=== PATIENT | male | born 1965 | race Hispanic/Latino ===

== ENCOUNTER 2016-07-11 12:30 | Inpatient (IN) | payer OTHER ==
[2016-07-11 13:20] LABS: Basophils % (Auto) 0.5 % (0.0-1.8); Eosinophils % (Auto) 5.5 % (0.0-4.3); Hemoglobin 13.1 gm/dl (11.8-15.2); Mean Corpuscular HGB Conc 36 % (32-34); Mean Corpuscular Hemoglobin 31 pg (28-32); Mean Corpuscular Volume 86 fl (84-94); Platelet Count 430 K/mm3 (140-440); White Blood Count 18.4 K/mm3 (4.5-11.0)
[2016-07-11 13:28] LABS: Anion Gap 16 mmol/L; BUN/Creatinine Ratio 15.55; Blood Urea Nitrogen 14 mg/dL (9-20); Calcium 8.4 mg/dL (8.4-10.2); Carbon Dioxide 23 mmol/L (22-30); Chloride 100.8 mmol/L (98-107); Glucose 85 mg/dL (75-100); Potassium 4.2 mmol/L (3.6-5.0); Sodium 136 mmol/L (137-145)
--- NOTE | 2016-07-11 13:37 | XRay Report ---
Chest 2 views: Compared to 03/08/16. Findings: Normal cardiomediastinal silhouette. Trachea and is midline. Evidence of COPD with fibrosis and scarring lower lobes. Left diaphragmatic higher compared to right. Infiltrates in the right lower lobe suggestive of pneumonitis. Impression: COPD. Superimposed pneumonitis right lung.
--- NOTE | 2016-07-11 15:40 | Emergency Department Report ---
HPI - General Chief Complaint: Dyspnea/Respdistress Time Seen by Provider: 07/11/16 15:34 - HPI HPI: Chief complaint: Shortness of breath and cough HPI: Patient with a history of COPD and coronary artery disease status post NJ with a stent presents with increasing shortness of breath over the last 3 weeks. Patient states he had an NJ in February 2016 and that's when he quit smoking. Patient is a and went to the [facility] [place] but has not been able to transfer his records to the [facility] here. Mode of arrival: [private car] Source: [Patient] Began: 3 weeks ago Duration: 3 weeks Context: See above Quality: Pain-free Severity: 0 out of 10 Improved with: Nothing Worsened with: Exertion Associated signs and symptoms: No fever and no productive sputum ED Past Medical Hx - Past Medical History Previous Medical History?: Yes Hx Heart Attack/AMI: Yes (2015 stent) Hx GERD: Yes Hx COPD: Yes Additional medical history: AFIB - Surgical History Past Surgical History?: Yes Hx Coronary Stent: Yes Hx Appendectomy: No Hx Breast Surgery: No Additional Surgical History: Cyst removed from lt.arm. - Social History Smoking Status: Former Smoker Substance Use Type: Prescribed - Medications Home Medications: Home Medications Medication Instructions Recorded Confirmed Last Taken Type Aspirin [Aspirin TAB] 325 mg PO QDAY #30 tablet 03/10/16 Unknown Rx Clopidogrel [Plavix] 75 mg PO QDAY #30 tablet 03/10/16 Unknown Rx Metoprolol Xl [Metoprolol 25 mg PO QDAY #30 tablet 03/10/16 Unknown Rx SUCCINATE ER TAB] Simvastatin [Zocor TAB] 40 mg PO QHS #30 tablet 03/10/16 Unknown Rx ED Review of Systems ROS: Stated complaint: SOB Other details as noted in HPI ROS Constitutional: No fever ENT: No uri symptoms Cardiovascular: No chest pain Respiratory: See HPI GI: No nausea vomiting or diarrhea : No dysuria frequency or urgency, Skin: No rash Neuro: No focal weakness or numbness Psych: No depression Vadim/lymph: No edema Physical Exam - Physical Exam Vital Signs: Vital Signs 07/11/16 07/11/16 12:43 14:51 Temperature 97.7 F Pulse Rate 81 86 Respiratory 18 21 Rate Blood Pressure 95/59 Blood Pressure 111/60 [Left] O2 Sat by Pulse 93 91 Oximetry Physical Exam: GENERAL: The patient is a thin male with mild shortness of breath HEENT: Normocephalic. Atraumatic. Extraocular motions are intact. Patient has moist mucous membranes. NECK: Supple. No meningitic signs are noted. There is no adenopathy noted. CHEST/LUNGS: Clear to auscultation. There is no respiratory distress noted. HEART/CARDIOVASCULAR: Regular. There is no tachycardia. There is no gallop rub or murmur. ABDOMEN: Abdomen is soft, nontender. Patient has normal bowel sounds. There is no abdominal distention. SKIN: There is no rash. There is no edema. There is no diaphoresis. NEURO: The patient is awake, alert, and oriented. The patient is cooperative. The patient has no focal neurologic deficits. The patient has normal speech. MUSCULOSKELETAL: There is no tenderness or deformity. There is no limitation range of motion. There is no evidence of acute injury. ED Course Vital Signs 07/11/16 07/11/16 12:43 14:51 Temperature 97.7 F Pulse Rate 81 86 Respiratory 18 21 Rate Blood Pressure 95/59 Blood Pressure 111/60 [Left] O2 Sat by Pulse 93 91 Oximetry - Reevaluation(s) Reevaluation #1: 07/11/16 Patient placed on a liter and a half nasal cannula, cultured and given IV antibiotics and will be admitted by the hospitalist. ED Medical Decision Making - Lab Data Result diagrams: 07/11/16 12:57 07/11/16 12:57 Laboratory Tests 07/11/16 12:57 Calcium 8.4 Troponin T < 0.010 - EKG Data -: EKG Interpreted by Me EKG shows normal: sinus rhythm Rate: normal (73) - EKG Data When compared to previous EKG there are: no significant change - Radiology Data interpreted by me: Chest x-ray with a left lower lobe infiltrate and pleural effusion. Questionable right lower lobe infiltrate. Critical care attestation.: If time is entered above; I have spent that time in minutes in the direct care of this critically ill patient, excluding procedure time. ED Disposition Clinical Impression: Pleural effusion Pneumonia Qualifiers: Pneumonia type: due to unspecified organism Laterality: bilateral Lung location : unspecified part of lung Qualified Code(s): J18.9 - Pneumonia, unspecified organism Disposition: OP ADMITTED IP TO THIS HOSP Is pt being admited?: Yes Does the pt Need Aspirin: Yes Condition: Fair Time of Disposition: 15:49 (admit to the hospitalist)
[2016-07-11] MEDS ORDERED: ASPIRIN PO ONE (16:12)
--- NOTE | 2016-07-11 18:02 | History and Physical Report ---
History of Present Illness Date of examination: 07/11/16 History of present illness: 51-year-old male with a history of FL presents to the hospital complaining of coughing and shortness of breath. Patient state that these symptoms are gone on for about 3 days. Patient described the coughing as productive with yellow sputum and fever, chills. Patient admits to some shortness of breath with exertion. Patient denies any wheezing. Patient denies any sick contacts. Patient denies any night sweats or weight loss. Past History Past Medical History: acute [place], hypertension, hyperlipidemia Medications and Allergies Allergies Allergy/AdvReac Type Severity Reaction Status Date / Time No Known Allergies Allergy Verified 03/08/16 03:00 Home Medications Medication Instructions Recorded Confirmed Last Taken Type Aspirin [Aspirin TAB] 325 mg PO QDAY #30 tablet 03/10/16 Unknown Rx Clopidogrel [Plavix] 75 mg PO QDAY #30 tablet 03/10/16 Unknown Rx Metoprolol Xl [Metoprolol 25 mg PO QDAY #30 tablet 03/10/16 Unknown Rx SUCCINATE ER TAB] Simvastatin [Zocor TAB] 40 mg PO QHS #30 tablet 03/10/16 Unknown Rx Review of Systems Constitutional: weakness, malaise Respiratory: cough with sputum, shortness of breath, dyspnea on exertion Exam - Constitutional Vitals: Temp Pulse Resp BP Pulse Ox 97.7 F 83 19 111/60 94 07/11/16 12:43 07/11/16 15:47 07/11/16 15:47 07/11/16 14:51 07/11/16 15:47 General appearance: Present: mild distress - EENT Eyes: Present: PERRL, EOM intact ENT: hearing intact, clear oral mucosa - Neck Neck: Present: supple, normal ROM - Respiratory Respiratory: bilateral: rhonchi - Cardiovascular Rhythm: regular Heart Sounds: Present: S1 & S2 - Extremities Extremities: no ischemia, No edema - Abdominal General gastrointestinal: Present: soft, non-tender, non-distended, normal bowel sounds - Musculoskeletal Musculoskeletal: strength equal bilaterally - Psychiatric Psychiatric: appropriate mood/affect, intact judgment & insight - Neurologic Neurologic: CNII-XII intact, moves all extremities Results - Labs CBC & Chem 7: 07/11/16 12:57 07/11/16 12:57 Labs: Laboratory Last Values WBC 18.4 K/mm3 (4.5-11.0) H 07/11/16 12:57 RBC 4.30 M/mm3 (3.65-5.03) 07/11/16 12:57 Hgb 13.1 gm/dl (11.8-15.2) 07/11/16 12:57 Hct 37.0 % (35.5-45.6) 07/11/16 12:57 MCV 86 fl (84-94) 07/11/16 12:57 MCH 31 pg (28-32) 07/11/16 12:57 MCHC 36 % (32-34) H 07/11/16 12:57 RDW 17.0 % (13.2-15.2) H 07/11/16 12:57 Plt Count 430 K/mm3 (140-440) 07/11/16 12:57 Lymph % (Auto) 16.4 % (13.4-35.0) 07/11/16 12:57 [place] % (Auto) 6.6 % (0.0-7.3) 07/11/16 12:57 Eos % (Auto) 5.5 % (0.0-4.3) H 07/11/16 12:57 Baso % (Auto) 0.5 % (0.0-1.8) 07/11/16 12:57 Lymph # 3.0 K/mm3 (1.2-5.4) 07/11/16 12:57 [place] # 1.2 K/mm3 (0.0-0.8) H 07/11/16 12:57 Eos # 1.0 K/mm3 (0.0-0.4) H 07/11/16 12:57 Baso # 0.1 K/mm3 (0.0-0.1) 07/11/16 12:57 Seg Neutrophils % 71.0 % (40.0-70.0) H 07/11/16 12:57 Seg Neutrophils # 13.1 K/mm3 (1.8-7.7) H 07/11/16 12:57 Sodium 136 mmol/L (137-145) L 07/11/16 12:57 Potassium 4.2 mmol/L (3.6-5.0) 07/11/16 12:57 Chloride 100.8 mmol/L (98-107) 07/11/16 12:57 Carbon Dioxide 23 mmol/L (22-30) 07/11/16 12:57 Anion Gap 16 mmol/L 07/11/16 12:57 BUN 14 mg/dL (9-20) 07/11/16 12:57 Creatinine 0.9 mg/dL (0.8-1.5) 07/11/16 12:57 Estimated GFR > 60 ml/min 07/11/16 12:57 BUN/Creatinine Ratio 15.55 % 07/11/16 12:57 Glucose 85 mg/dL (75-100) 07/11/16 12:57 Calcium 8.4 mg/dL (8.4-10.2) 07/11/16 12:57 Troponin T < 0.010 ng/mL (0.00-0.029) 07/11/16 12:57 Assessment and Plan - Patient Problems (1) Pleural effusion Current Visit: Yes Status: Acute Plan to address problem: Pulmonary medicine was consulted for possible thoracentesis to evaluate etiology of pleural fluid (2) Pneumonia Current Visit: Yes Status: Acute Qualifiers: Pneumonia type: due to unspecified organism Aspiration pneumonia type: A Laterality: bilateral Lung location: unspecified part of lung Qualified Code (s): J18.9 - Pneumonia, unspecified organism Plan to address problem: We'll start IV Levaquin. Follow sputum cultures. Follow blood cultures
[2016-07-11] MEDS ORDERED: LEVAQUIN 750MG/150ML 0 MG/0 ML BAG IV ONE (18:37)
[2016-07-11] MEDS ORDERED: NACL 0.9% 1000 ML 0 ML ONE (18:37)
[2016-07-11] MEDS: TOPROL XL PO SCH (18:50)
[2016-07-11] MEDS: PLAVIX PO SCH (20:25)
[2016-07-11] MEDS: ASPIRIN PO SCH (20:25)
[2016-07-11] MEDS: LEVAQUIN 500MG/100ML 500 MG/100 ML BAG IV SCH (20:25)
[2016-07-11] MEDS: NACL 0.9% 1000 ML 1,000 ML IV SCH (20:26)
[2016-07-11] MEDS: ZOCOR PO SCH (21:58)
[2016-07-11] MEDS ORDERED: PROVENTIL IH PRN (22:07)
[2016-07-12] MEDS: NACL 0.9% 1000 ML 1,000 ML IV SCH ×3 (04:51→22:03)
[2016-07-12 07:47] LABS: Basophils % (Auto) 0.7 % (0.0-1.8); Eosinophils % (Auto) 9.8 % (0.0-4.3); Hematocrit 34.4 % (35.5-45.6); Hemoglobin 12.3 gm/dl (11.8-15.2); Mean Corpuscular HGB Conc 36 % (32-34); Mean Corpuscular Hemoglobin 31 pg (28-32); Mean Corpuscular Volume 86 fl (84-94); Platelet Count 369 K/mm3 (140-440); Red Cell Distribution Width 17.1 % (13.2-15.2); White Blood Count 13.1 K/mm3 (4.5-11.0)
[2016-07-12 08:39] LABS: Alanine Aminotransferase 6 units/L (7-56); Albumin 3.4 g/dL (3.9-5); Albumin/Globulin Ratio 1.1 %; Alkaline Phosphatase 57 units/L (35-129); Anion Gap 17 mmol/L; BUN/Creatinine Ratio 15.71; Bilirubin,Total 1.2 mg/dL (0.1-1.2); Blood Urea Nitrogen 11 mg/dL (9-20); Calcium 8.1 mg/dL (8.4-10.2); Carbon Dioxide 23 mmol/L (22-30); Glucose 86 mg/dL (75-100); Potassium 4.1 mmol/L (3.6-5.0); Sodium 139 mmol/L (137-145); Total Protein 6.5 g/dL (6.3-8.2)
[2016-07-12] MEDS: TOPROL XL PO SCH (09:14)
[2016-07-12] MEDS: ASPIRIN PO SCH (09:16)
[2016-07-12] MEDS: PLAVIX PO SCH (09:16)
--- NOTE | 2016-07-12 10:05 | Event Note ---
Date: 07/12/16 Dr. Pope thank you for asking us to participate in the care of this patient. Full consultation dictated.Pulmonary consultation dictation number: [id number]. IMMPRESSION: 1. COPD EXCERBATION. 2. RIGHT SIDED PNEUMONIA. 3. LEFT PLEURAL EFFUSION OR PLEURAL SCARRING. 4. CAD, S/P CORONARY STENT PLACEMENT. 5. H/O [place]. PLAN: 1. O2 2 LITRES VIA NASAL CANULA. 2. ABGS ON ROOM AIR. 3. ALBUTEROL/ATROVENT AEROSOL TREATMENTS Q 6 HOURS. 4. ULTRASOUND OF CHEST. 5. CONTINUE I/V LEVAQUINE. 6. BROVANNA/ATROVENT AEROSOL TREATMENTS Q 12 HOURS.
--- NOTE | 2016-07-12 19:00 | Progress Note ---
Assessment and Plan Assessment and plan: --Right-sided pneumonia Continue IV antibiotics, follow cultures, cough medicine as needed Oxygen titrated to O2 sats more than 90% --Acute exacerbation of COPD We will manage with nebulizers, IV antibiotics, inhalation steroids --Left-sided pleural effusion We'll obtain a chest ultrasound, paracentesis if needed --History of coronary artery disease status post PCI Continue current cardiac medications, aspirin and Plavix beta blockers and statins --DVT prophylaxis with Lovenox Consults and recommendations noted and appreciated Patient's condition treatment plan discussed in detail with the patient and his nurse History Interval history: Sincerely and evaluated in his room this morning medical records reviewed Admitted with pneumonia and post shortness of breath as well as left-sided pleural effusion Patient feels slightly better still complains of shortness of breath Alert awake oriented 3 not in acute distress Vital signs reviewed Hospitalist Physical - Constitutional Vitals: Temp Pulse Resp BP Pulse Ox 98.1 F 74 20 97/56 98 07/12/16 14:30 07/12/16 14:30 07/12/16 14:30 07/12/16 14:30 07/12/16 08:07 General appearance: Present: mild distress, cachectic - EENT Eyes: Present: PERRL, EOM intact - Neck Neck: Present: supple, normal ROM - Respiratory Respiratory effort: normal Respiratory: bilateral: diminished (left more than right), rhonchi, negative: wheezing - Cardiovascular Rhythm: regular Heart Sounds: Present: S1 & S2 - Extremities Extremities: no ischemia, pulses intact Peripheral Pulses: within normal limits - Abdominal General gastrointestinal: soft, non-tender, non-distended, normal bowel sounds - Integumentary Integumentary: Present: clear, warm - Psychiatric Psychiatric: appropriate mood/affect, cooperative - Neurologic Neurologic: CNII-XII intact, moves all extremities Results - Labs CBC & Chem 7: 07/12/16 06:20 07/12/16 06:20 Labs: Laboratory Last Values WBC 13.1 K/mm3 (4.5-11.0) H 07/12/16 06:20 RBC 4.00 M/mm3 (3.65-5.03) 07/12/16 06:20 Hgb 12.3 gm/dl (11.8-15.2) 07/12/16 06:20 Hct 34.4 % (35.5-45.6) L 07/12/16 06:20 MCV 86 fl (84-94) 07/12/16 06:20 MCH 31 pg (28-32) 07/12/16 06:20 MCHC 36 % (32-34) H 07/12/16 06:20 RDW 17.1 % (13.2-15.2) H 07/12/16 06:20 Plt Count 369 K/mm3 (140-440) 07/12/16 06:20 Lymph % (Auto) 11.8 % (13.4-35.0) L 07/12/16 06:20 [place] % (Auto) 6.7 % (0.0-7.3) 07/12/16 06:20 Eos % (Auto) 9.8 % (0.0-4.3) H 07/12/16 06:20 Baso % (Auto) 0.7 % (0.0-1.8) 07/12/16 06:20 Lymph # 1.5 K/mm3 (1.2-5.4) 07/12/16 06:20 [place] # 0.9 K/mm3 (0.0-0.8) H 07/12/16 06:20 Eos # 1.3 K/mm3 (0.0-0.4) H 07/12/16 06:20 Baso # 0.1 K/mm3 (0.0-0.1) 07/12/16 06:20 Seg Neutrophils % 71.0 % (40.0-70.0) H 07/12/16 06:20 Seg Neutrophils # 9.3 K/mm3 (1.8-7.7) H 07/12/16 06:20 Sodium 139 mmol/L (137-145) 07/12/16 06:20 Potassium 4.1 mmol/L (3.6-5.0) 07/12/16 06:20 Chloride 103.0 mmol/L (98-107) 07/12/16 06:20 Carbon Dioxide 23 mmol/L (22-30) 07/12/16 06:20 Anion Gap 17 mmol/L 07/12/16 06:20 BUN 11 mg/dL (9-20) 07/12/16 06:20 Creatinine 0.7 mg/dL (0.8-1.5) L 07/12/16 06:20 Estimated GFR > 60 ml/min 07/12/16 06:20 BUN/Creatinine Ratio 15.71 % 07/12/16 06:20 Glucose 86 mg/dL (75-100) 07/12/16 06:20 Calcium 8.1 mg/dL (8.4-10.2) L 07/12/16 06:20 Total Bilirubin 1.2 mg/dL (0.1-1.2) 07/12/16 06:20 AST 11 units/L (5-40) 07/12/16 06:20 ALT 6 units/L (7-56) L 07/12/16 06:20 Alkaline Phosphatase 57 units/L (35-129) 07/12/16 06:20 Troponin T < 0.010 ng/mL (0.00-0.029) 07/11/16 12:57 Total Protein 6.5 g/dL (6.3-8.2) 07/12/16 06:20 Albumin 3.4 g/dL (3.9-5) L 07/12/16 06:20 Albumin/Globulin Ratio 1.1 % 07/12/16 06:20
[2016-07-12] MEDS: LEVAQUIN 500MG/100ML 500 MG/100 ML BAG IV SCH (19:15)
[2016-07-12] MEDS: BROVANA NEBU IH SCH (20:53)
[2016-07-12] MEDS: ATROVENT IH SCH (21:09)
[2016-07-12] MEDS: ZOCOR PO SCH (22:00)
[2016-07-12] MEDS: LOVENOX SUB-Q SCH (22:00)
[2016-07-13] MEDS: NACL 0.9% 1000 ML 1,000 ML IV SCH (08:28)
[2016-07-13] MEDS: BROVANA NEBU IH SCH ×2 (08:59→20:52)
[2016-07-13] MEDS: ATROVENT IH SCH ×2 (09:00→20:52)
--- NOTE | 2016-07-13 09:06 | Ultrasound Report ---
ULTRASOUND CHEST History: Left pleural effusion Findings: Targeted transabdominal ultrasound on left side of the chest. There is a moderate left pleural fluid collection measuring at 399 cc. This appears to contain moderate debris but no septation or gas. Impression: Moderate, slightly complex appearing left pleural effusion measuring 399 cc.
--- NOTE | 2016-07-13 09:51 | Admit Criteria Form ---
Admission Criteria Documentation: PLEURAL EFFUSION Clinical Indications for Admission to Inpatient Care (Place 'X' for any and all applicable criteria): Admission is indicated for ANY ONE of the following (1)(2)(3): [ ]I. Pneumonia-related effusion requiring drainage as indicated by ANY ONE of the following [A]: [ ]a) Large pleural effusion (symptomatic or greater than one-half of hemithorax) [ ]b) Loculated effusion [ ]c) Pleural thickening [ ]d) Pleural fluid analysis results, including ANY ONE of the following: [ ]i) Positive Gram stain or culture for bacteria [ ]ii) Pus [ ]iii) pH less than 7.20 [X]II. Inpatient admission required rather than observation care (Also use Pleural Effusion: Observation Care criteria as appropriate) because of ANY ONE of the following: [ ]a) Hemodynamic instability that is severe or persistent [ ]b) Respiratory distress that is severe or persistent [ ]c) Complication of drainage (e.g., pneumothorax) that requires inpatient care [ ]d) Etiology that requires inpatient care (e.g., pulmonary embolism , trauma) [ ]e) Severe pain requiring acute inpatient management [X ]f) Supplemental O2 or respiration drug for over 24 hrs that are performable only in an inpatient setting [ ]g) Chest tube placement with active evacuation (e.g., suction, drainage) [ ]h) Pulmonary artery catheter monitoring [ ]i) Epidural analgesia (8) [ ]j) Continuous IV infusion of anticoagulation, platelet inhibitor, vasoactive, or antiarrhythmic medication. [X ]k) Other condition, treatment or monitoring requiring inpatient admission [ ]l) Immediate inpatient surgery [ ]III. Hemothorax [ ]IV. Empyema [ ]V. Pleural effusion with concomitant pneumothorax [ ]. Recurrent or malignant pleural effusion requiring pleurodesis (4) Extended stay beyond goal length of stay may be needed for (27)(28): [ ]a) Empyema or complicated parapneumonic effusion (24)(29) [ ]b) Malignant pleural effusion (4) [ ]c) Pleural effusion due to trauma or perforated esophagus [ ]d) Pleural effusion due to pulmonary embolism (30) [ ]e) Clinically significant re-expansion pulmonary edema [ ]f) Hemothorax [ ]g) Renal failure [ ]h) Trapped lung (e.g., benign or malignant thickened pleura preventing lung re-expansion) (31) [ ]i) Underlying etiology necessitates ongoing inpatient care (e.g., pneumonia, heart failure, malignancy) [ ]j) Complications of thoracentesis, thoracostomy tube, or pleural cath. placement The original [facility] content created by [facility] [employer] has been revised. The portions of the content which have been revised are identified through the use of italic text or in bold, and [facility] has neither reviewed nor approved the modified material. All other unmodified content is copyright [facility] [employer]. Please see references footnoted in the original [facility] edition 2016 Admission Criteria Met: Yes
[2016-07-13 10:14] LABS: ISTAT Base Excess -3; ISTAT HCO3 21.7; ISTAT PCO2 35.9 (35-45); ISTAT PO2 61 (80-105); ISTAT SO2 91; ISTAT TCO2 23
[2016-07-13] MEDS: ASPIRIN PO SCH (10:30)
[2016-07-13] MEDS: PLAVIX PO SCH (10:30)
[2016-07-13] MEDS: TOPROL XL PO SCH (10:30)
--- NOTE | 2016-07-13 14:18 | Progress Note ---
Assessment and Plan Assessment and plan: --Left-sided pleural effusion Ultrasound revealed Moderate slightly complex-appearing left pleural effusion measuring [address]-guided thoracentesis versus CT surgeon consultation if needed Pulmonary following --Right-sided pneumonia Continue IV antibiotics, follow cultures, cough medicine as needed Oxygen titrated to O2 sats more than 90% --Acute exacerbation of COPD We will manage with nebulizers, IV antibiotics, inhalation steroids --History of coronary artery disease status post PCI Continue current cardiac medications, aspirin and Plavix beta blockers and statins --DVT prophylaxis with Lovenox Home oxygen evaluation at this time of discharge Closely monitor the patient adjust management as needed Plan of care discussed with the patient and his nurse History Interval history: Patient seen and evaluated medical records reviewed No new events reported by the nursing staff Ultrasound chest revealed complex left pleural effusion Shortness of breath slightly improved Alert awake oriented 3 not in acute distress vital signs reviewed Hospitalist Physical - Constitutional Vitals: Temp Pulse Resp BP Pulse Ox 97.8 F 88 18 107/63 93 07/13/16 08:29 07/13/16 09:15 07/13/16 09:15 07/13/16 08:29 07/13/16 10:00 General appearance: Present: no acute distress, other (10.) - EENT Eyes: Present: PERRL, EOM intact - Neck Neck: Present: supple, normal ROM - Respiratory Respiratory: right: rhonchi (right-sided rhonchi), bilateral: diminished (left more than right), negative: rales, wheezing - Cardiovascular Rhythm: regular Heart Sounds: Present: S1 & S2 - Extremities Extremities: no ischemia, pulses intact, pulses symmetrical Peripheral Pulses: within normal limits - Abdominal General gastrointestinal: soft, non-tender, non-distended, normal bowel sounds - Integumentary Integumentary: Present: clear, warm - Psychiatric Psychiatric: appropriate mood/affect, cooperative - Neurologic Neurologic: CNII-XII intact, moves all extremities Results - Labs CBC & Chem 7: 07/12/16 06:20 07/12/16 06:20 Labs: Laboratory Last Values WBC 13.1 K/mm3 (4.5-11.0) H 07/12/16 06:20 RBC 4.00 M/mm3 (3.65-5.03) 07/12/16 06:20 Hgb 12.3 gm/dl (11.8-15.2) 07/12/16 06:20 Hct 34.4 % (35.5-45.6) L 07/12/16 06:20 MCV 86 fl (84-94) 07/12/16 06:20 MCH 31 pg (28-32) 07/12/16 06:20 MCHC 36 % (32-34) H 07/12/16 06:20 RDW 17.1 % (13.2-15.2) H 07/12/16 06:20 Plt Count 369 K/mm3 (140-440) 07/12/16 06:20 Lymph % (Auto) 11.8 % (13.4-35.0) L 07/12/16 06:20 [place] % (Auto) 6.7 % (0.0-7.3) 07/12/16 06:20 Eos % (Auto) 9.8 % (0.0-4.3) H 07/12/16 06:20 Baso % (Auto) 0.7 % (0.0-1.8) 07/12/16 06:20 Lymph # 1.5 K/mm3 (1.2-5.4) 07/12/16 06:20 [place] # 0.9 K/mm3 (0.0-0.8) H 07/12/16 06:20 Eos # 1.3 K/mm3 (0.0-0.4) H 07/12/16 06:20 Baso # 0.1 K/mm3 (0.0-0.1) 07/12/16 06:20 Seg Neutrophils % 71.0 % (40.0-70.0) H 07/12/16 06:20 Seg Neutrophils # 9.3 K/mm3 (1.8-7.7) H 07/12/16 06:20 POC ABG pH 7.390 (7.35-7.45) 07/12/16 16:05 POC ABG pCO2 35.9 (35-45) 07/12/16 16:05 POC ABG pO2 61 (80-105) L 07/12/16 16:05 POC ABG HCO3 21.7 07/12/16 16:05 POC ABG Total CO2 23 07/12/16 16:05 POC ABG O2 Sat 91 07/12/16 16:05 POC ABG Base Excess -3 07/12/16 16:05 FiO2 3 % 07/12/16 16:05 Sodium 139 mmol/L (137-145) 07/12/16 06:20 Potassium 4.1 mmol/L (3.6-5.0) 07/12/16 06:20 Chloride 103.0 mmol/L (98-107) 07/12/16 06:20 Carbon Dioxide 23 mmol/L (22-30) 07/12/16 06:20 Anion Gap 17 mmol/L 07/12/16 06:20 BUN 11 mg/dL (9-20) 07/12/16 06:20 Creatinine 0.7 mg/dL (0.8-1.5) L 07/12/16 06:20 Estimated GFR > 60 ml/min 07/12/16 06:20 BUN/Creatinine Ratio 15.71 % 07/12/16 06:20 Glucose 86 mg/dL (75-100) 07/12/16 06:20 Calcium 8.1 mg/dL (8.4-10.2) L 07/12/16 06:20 Total Bilirubin 1.2 mg/dL (0.1-1.2) 07/12/16 06:20 AST 11 units/L (5-40) 07/12/16 06:20 ALT 6 units/L (7-56) L 07/12/16 06:20 Alkaline Phosphatase 57 units/L (35-129) 07/12/16 06:20 Troponin T < 0.010 ng/mL (0.00-0.029) 07/11/16 12:57 Total Protein 6.5 g/dL (6.3-8.2) 07/12/16 06:20 Albumin 3.4 g/dL (3.9-5) L 07/12/16 06:20 Albumin/Globulin Ratio 1.1 % 07/12/16 06:20
[2016-07-13] MEDS: LEVAQUIN PO SCH (15:47)
--- NOTE | 2016-07-13 21:17 | Progress Note ---
Assessment and Plan Patient alert, awake. Sitting by the side of the bed.Says breathing better.O loculated 2 satuaration 98% on 3 litres O2.Patients Ultrsound of chest reported about 400ml of left pleural effusion slightly complex loculated effusion. Recommend thoracentesis under ultrasound or CAT scan guidance by interventional radiology. - Patient Problems (1) COPD exacerbation Current Visit: Yes Status: Acute Plan to address problem: O2 supplementation 3 litres. Brovanna/Atrovent aerosol treatments.q 12 hours. Continue S/C Lovenox. Continue Levaquine. (2) Pleural effusion, left Current Visit: Yes Status: Acute Plan to address problem: Ultrasound of chest reported about 400 ml loculated and slightly complex left pleural effusion. Recommend thoracentesis under ultrasound or CT guidance by interventional radiology. Sent pleural fluid for cytology, cell count, LDH, Protein, Glucose and amylase, gram stain C&S ,AFB and Fungus. (3) Pneumonia Current Visit: Yes Status: Acute Qualifiers: Pneumonia type: due to unspecified organism Aspiration pneumonia type: A Laterality: bilateral Lung location: unspecified part of lung Qualified Code (s): J18.9 - Pneumonia, unspecified organism Plan to address problem: Patient is on Levaquine. (4) STEMI (ST elevation myocardial infarction) Current Visit: No Status: Acute Qualifiers: Involved coronary artery: unspecified coronary artery Qualified Code(s): I21.3 - ST elevation (STEMI) myocardial infarction of unspecified site Plan to address problem: Management as per primary care and cardiology. Subjective Date of service: 07/13/16 Interval history: Patient alert, awake. Sitting by the side of the bed.Says breathing better.O loculated 2 satuaration 98% on 3 litres O2.Patients Ultrsound of chest reported about 400ml of left pleural effusion slightly complex loculated effusion. Recommend thoracentesis under ultrasound or CAT scan guidance by interventional radiology. Objective Vital Signs - 12hr 07/13/16 07/13/16 07/13/16 09:15 10:00 16:23 Temperature 97.9 F Pulse Rate [ 88 Bilateral Throughout] Pulse Rate [ 66 From Monitor] Respiratory 20 Rate Respiratory 18 Rate [Bilateral Throughout] Blood Pressure 99/55 [Left Arm] O2 Sat by Pulse 93 Oximetry 07/13/16 07/13/16 20:54 20:55 Temperature Pulse Rate [ 78 Bilateral Throughout] Pulse Rate [ From Monitor] Respiratory Rate Respiratory 16 Rate [Bilateral Throughout] Blood Pressure [Left Arm] O2 Sat by Pulse 98 Oximetry Constitutional: no acute distress, alert Eyes: non-icteric ENT: oropharynx moist Neck: supple, no lymphadenopathy Ascultation: Bilateral: diminished breath sounds (prolonged expiratory phase. Decreased breath sounds left base.) Cardiovascular: regular rate and rhythm Gastrointestinal: normoactive bowel sounds, soft, non-tender Integumentary: normal Extremities: no cyanosis, no edema Neurologic: normal mental status, non-focal exam, pupils equal and round, CN II- XII normal Psychiatric: mood appropriate CBC and BMP: 07/12/16 06:20 07/12/16 06:20 ABG, PT/INR, D-dimer: ABG POC ABG pH 7.390 (7.35-7.45) 07/12/16 16:05 POC ABG pCO2 35.9 (35-45) 07/12/16 16:05 POC ABG pO2 61 (80-105) L 07/12/16 16:05 POC ABG HCO3 21.7 07/12/16 16:05 POC ABG Total CO2 23 07/12/16 16:05 POC ABG O2 Sat 91 07/12/16 16:05 Abnormal lab findings: Abnormal Labs 07/12/16 07/12/16 07/12/16 06:20 06:20 16:05 WBC 13.1 H Hct 34.4 L MCHC 36 H RDW 17.1 H Lymph % (Auto) 11.8 L Eos % (Auto) 9.8 H [place] # 0.9 H Eos # 1.3 H Seg Neutrophils % 71.0 H Seg Neutrophils # 9.3 H POC ABG pO2 61 L Creatinine 0.7 L Calcium 8.1 L ALT 6 L Albumin 3.4 L Additional Studies: Ultrasound of chest reported about 400 ml slightly complex loculated left effusion.
[2016-07-13 21:39] LABS: INR 1.11 (0.87-1.13)
[2016-07-13] MEDS ORDERED: ATROVENT IH SCH (22:00)
[2016-07-13] MEDS: LOVENOX SUB-Q SCH (22:40)
[2016-07-13] MEDS: ZOCOR PO SCH (22:40)
--- NOTE | 2016-07-14 00:11 | Consultation ---
CONSULTED BY: Dr. Pope. REASON FOR CONSULTATION: Left pleural effusion and right-sided pneumonia. HISTORY OF PRESENT ILLNESS: Dr. Pope, thank you for asking me to participate in the care of this patient. This is a 51-year-old white male with history of myocardial infarction and coronary artery disease, status post stent placement in the right coronary artery, came in with a complaint of cough and shortness of breath. These symptoms started 3 days prior to coming into the Emergency Room. The patient's cough is productive with yellow sputum and he also has been running a little fever and chills and he has some shortness of breath on exertion. He denies any wheezing. Denies any sick contacts. He denies any night sweats or weight loss. The patient has a history of hypertension, hyperlipidemia, history of myocardial infarction. The patient also has a heavy history of smoking 1 pack for 30 years. He said he stopped recently. He may have a COPD also. ALLERGIES: The patient denies any allergies to the medications. 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 He is . He is in the process of divorce. He has 1 child. He denies any history of alcohol or drug abuse. PHYSICAL EXAMINATION: GENERAL: He is kind of weak and resting in a bed, but no acute respiratory distress at this time. VITAL SIGNS: Temperature is 98.2, pulse is 82, respirations 20, blood pressure ____. HEENT: Eyes, sunken. Pupils reactive to the light. NECK: Supple, no lymphadenopathy. CARDIOVASCULAR: Regular rate and rhythm. LUNGS: Decreased breath sounds at the right and left base, prolonged expiratory phases, and few bilateral rhonchi. ABDOMEN: Soft. Bowel sounds present. No CVA tenderness. MUSCULOSKELETAL: No edema, no clubbing, no cyanosis. NEUROLOGIC: DTR equal and reactive. Babinski negative. No focal neurological deficits. LABORATORY DATA: The patient's CBC: WBC 13.1, hemoglobin 12.3, hematocrit is 34.4, platelet count is 369,000. The patient's CMP: Sodium 139, potassium 4.1, BUN 11, creatinine 0.7, calcium 8.1, albumin 3.4. The patient's arterial blood gas: PH 7.39, pCO2 of 36, pO2 61, bicarbonate 22, and O2 saturation 91% on room air. The patient's chest x-ray, COPD, superimposed pneumonitis in the right lung has been reported and also evidence of a fibrosis, scarring in the lower lobes and also appears there is a question of pleural effusion on the left side. IMPRESSION: 1. Chronic obstructive pulmonary disease exacerbation. 2. Right-sided pneumonia. 3. Left pleural effusion or pleural scarring. 4. Coronary artery disease, status post coronary stent placement. 5. History of myocardial infarction. PLAN: 1. O2 two liters via nasal cannula. 2. Albuterol and Atrovent aerosol treatments q. 6h. 3. Ultrasound of the chest. 4. Continue IV Levaquin. 5. Brovana and Atrovent aerosol treatments q.12h. I want to thank Dr. Pope for this consultation. I will follow the patient with him. JOB# [id number] SHELLEY/DWIGHT
[2016-07-14 07:10] LABS: Basophils % (Auto) 1.2 % (0.0-1.8); Eosinophils % (Auto) 10.6 % (0.0-4.3); Hematocrit 36.9 % (35.5-45.6); Hemoglobin 12.9 gm/dl (11.8-15.2); Mean Corpuscular HGB Conc 35 % (32-34); Mean Corpuscular Hemoglobin 30 pg (28-32); Mean Corpuscular Volume 86 fl (84-94); Platelet Count 417 K/mm3 (140-440); Red Blood Count 4.28 M/mm3 (3.65-5.03); Red Cell Distribution Width 17.2 % (13.2-15.2); White Blood Count 15.1 K/mm3 (4.5-11.0)
[2016-07-14 07:19] LABS: INR 1.11 (0.87-1.13)
[2016-07-14 07:24] LABS: Anion Gap 15 mmol/L; BUN/Creatinine Ratio 12.85; Blood Urea Nitrogen 9 mg/dL (9-20); Calcium 8.3 mg/dL (8.4-10.2); Carbon Dioxide 25 mmol/L (22-30); Glucose 96 mg/dL (75-100); Potassium 4.2 mmol/L (3.6-5.0); Sodium 137 mmol/L (137-145)
[2016-07-14] MEDS: ATROVENT IH SCH ×2 (07:53→19:55)
[2016-07-14] MEDS: BROVANA NEBU IH SCH ×2 (07:54→19:55)
[2016-07-14] MEDS: ASPIRIN PO SCH (12:26)
[2016-07-14] MEDS: PLAVIX PO SCH (12:27)
[2016-07-14] MEDS: LEVAQUIN PO SCH (12:36)
[2016-07-14] MEDS: TOPROL XL PO SCH (12:41)
--- NOTE | 2016-07-14 13:39 | Progress Note ---
Assessment and Plan Assessment and plan: --Left-sided pleural effusion Ultrasound revealed Moderate slightly complex-appearing left pleural effusion measuring [address]-guided thoracentesis versus CT surgeon consultation if needed Pulmonary following --Right-sided pneumonia Continue IV antibiotics, follow cultures, cough medicine as needed Oxygen titrated to O2 sats more than 90% --Acute exacerbation of COPD We will manage with nebulizers, IV antibiotics, inhalation steroids --History of coronary artery disease status post PCI Continue current cardiac medications, aspirin and Plavix beta blockers and statins --DVT prophylaxis with Lovenox Home oxygen evaluation at this time of discharge Closely monitor the patient adjust management as needed Plan of care discussed with the patient and his nurse History Interval history: Patient feels slightly better no new complaints Possible CT-guided thoracentesis Awkwardness of breath and cough less Alert awake oriented 3 not in acute distress Hospitalist Physical - Constitutional Vitals: Temp Pulse Resp BP Pulse Ox 97.7 F 77 20 100/59 97 07/14/16 08:00 07/14/16 12:41 07/14/16 08:05 07/14/16 12:41 07/14/16 08:00 General appearance: Present: no acute distress, cachectic - EENT Eyes: Present: PERRL, EOM intact - Neck Neck: Present: supple, normal ROM - Respiratory Respiratory effort: normal Respiratory: bilateral: diminished (left more than right), rhonchi (more than diet) - Cardiovascular Rhythm: regular Heart Sounds: Present: S1 & S2 - Extremities Extremities: no ischemia, pulses intact, pulses symmetrical Peripheral Pulses: within normal limits - Abdominal General gastrointestinal: soft, non-tender, non-distended, normal bowel sounds - Integumentary Integumentary: Present: clear, warm - Psychiatric Psychiatric: appropriate mood/affect, cooperative - Neurologic Neurologic: CNII-XII intact, moves all extremities Results - Labs CBC & Chem 7: 07/14/16 06:49 07/14/16 06:49 Labs: Laboratory Last Values WBC 15.1 K/mm3 (4.5-11.0) H 07/14/16 06:49 RBC 4.28 M/mm3 (3.65-5.03) 07/14/16 06:49 Hgb 12.9 gm/dl (11.8-15.2) 07/14/16 06:49 Hct 36.9 % (35.5-45.6) 07/14/16 06:49 MCV 86 fl (84-94) 07/14/16 06:49 MCH 30 pg (28-32) 07/14/16 06:49 MCHC 35 % (32-34) H 07/14/16 06:49 RDW 17.2 % (13.2-15.2) H 07/14/16 06:49 Plt Count 417 K/mm3 (140-440) 07/14/16 06:49 Lymph % (Auto) 14.3 % (13.4-35.0) 07/14/16 06:49 [place] % (Auto) 8.1 % (0.0-7.3) H 07/14/16 06:49 Eos % (Auto) 10.6 % (0.0-4.3) H 07/14/16 06:49 Baso % (Auto) 1.2 % (0.0-1.8) 07/14/16 06:49 Lymph # 2.2 K/mm3 (1.2-5.4) 07/14/16 06:49 [place] # 1.2 K/mm3 (0.0-0.8) H 07/14/16 06:49 Eos # 1.6 K/mm3 (0.0-0.4) H 07/14/16 06:49 Baso # 0.2 K/mm3 (0.0-0.1) H 07/14/16 06:49 Seg Neutrophils % 65.8 % (40.0-70.0) 07/14/16 06:49 Seg Neutrophils # 9.9 K/mm3 (1.8-7.7) H 07/14/16 06:49 PT 14.2 Sec. (12.2-14.9) 07/14/16 06:49 INR 1.11 (0.87-1.13) 07/14/16 06:49 APTT 32.0 Sec. (24.2-36.6) 07/14/16 06:49 POC ABG pH 7.390 (7.35-7.45) 07/12/16 16:05 POC ABG pCO2 35.9 (35-45) 07/12/16 16:05 POC ABG pO2 61 (80-105) L 07/12/16 16:05 POC ABG HCO3 21.7 07/12/16 16:05 POC ABG Total CO2 23 07/12/16 16:05 POC ABG O2 Sat 91 07/12/16 16:05 POC ABG Base Excess -3 07/12/16 16:05 FiO2 3 % 07/12/16 16:05 Sodium 137 mmol/L (137-145) 07/14/16 06:49 Potassium 4.2 mmol/L (3.6-5.0) 07/14/16 06:49 Chloride 101.0 mmol/L (98-107) 07/14/16 06:49 Carbon Dioxide 25 mmol/L (22-30) 07/14/16 06:49 Anion Gap 15 mmol/L 07/14/16 06:49 BUN 9 mg/dL (9-20) 07/14/16 06:49 Creatinine 0.7 mg/dL (0.8-1.5) L 07/14/16 06:49 Estimated GFR > 60 ml/min 07/14/16 06:49 BUN/Creatinine Ratio 12.85 % 07/14/16 06:49 Glucose 96 mg/dL (75-100) 07/14/16 06:49 Calcium 8.3 mg/dL (8.4-10.2) L 07/14/16 06:49 Total Bilirubin 1.2 mg/dL (0.1-1.2) 07/12/16 06:20 AST 11 units/L (5-40) 07/12/16 06:20 ALT 6 units/L (7-56) L 07/12/16 06:20 Alkaline Phosphatase 57 units/L (35-129) 07/12/16 06:20 Troponin T < 0.010 ng/mL (0.00-0.029) 07/11/16 12:57 Total Protein 6.5 g/dL (6.3-8.2) 07/12/16 06:20 Albumin 3.4 g/dL (3.9-5) L 07/12/16 06:20 Albumin/Globulin Ratio 1.1 % 07/12/16 06:20
--- NOTE | 2016-07-14 20:01 | Progress Note ---
Assessment and Plan Patient alert, awake. Sitting by the side of the bed. On 3 litres O2. O2 satuartion 97%. Patient says he is under stress today. Patient is on Plavix and Aspirin. Interventional radiology unable to to do thoracentesis. Patient told me it is scheduled for 17 of july. Recommend to get it done on , If no complication from the procedure. Patient can be discharged on or . Recommend to send pleural fluid for cytology, Cell count, LDH,Protein, Glucose, Amylase, Gram stain, C&S ,AFB and Fungus. - Patient Problems (1) COPD exacerbation Current Visit: Yes Status: Acute Plan to address problem: O2 supplementation 3 litres. Brovanna/Atrovent aerosol treatments.q 12 hours. Continue S/C Lovenox. Continue Levaquine. (2) Pleural effusion, left Current Visit: Yes Status: Acute Plan to address problem: Ultrasound of chest reported about 400 ml loculated and slightly complex left pleural effusion. Recommend thoracentesis under ultrasound or CT guidance by interventional radiology. Sent pleural fluid for cytology, cell count, LDH, Protein, Glucose and amylase, gram stain C&S ,AFB and Fungus. Patient is on Plavix and Aspirin. Unable to do thoracentesis by interventional radiology today. Patient rescheduled for thoracentesis by interventional radiology on . (3) Pneumonia Current Visit: Yes Status: Acute Qualifiers: Pneumonia type: due to unspecified organism Aspiration pneumonia type: A Laterality: bilateral Lung location: unspecified part of lung Qualified Code (s): J18.9 - Pneumonia, unspecified organism Plan to address problem: Patient is on Levaquine. (4) STEMI (ST elevation myocardial infarction) Current Visit: No Status: Acute Qualifiers: Involved coronary artery: unspecified coronary artery Qualified Code(s): I21.3 - ST elevation (STEMI) myocardial infarction of unspecified site Plan to address problem: Management as per primary care and cardiology. Subjective Date of service: 07/14/16 Interval history: Patient alert, awake. Sitting by the side of the bed. On 3 litres O2. O2 satuartion 97%. Patient says he is under stress today. Patient is on Plavix and Aspirin. Interventional radiology unable to to do thoracentesis. Patient told me it is scheduled for 17 of july. Recommend to get it done on , If no complication from the procedure. Patient can be discharged on or . Recommend to send pleural fluid for cytology, Cell count, LDH,Protein, Glucose, Amylase, Gram stain, C&S ,AFB and Fungus. Objective Vital Signs - 12hr 07/14/16 07/14/16 07/14/16 08:00 08:05 09:00 Temperature 97.7 F Pulse Rate Pulse Rate [ 85 Bilateral Throughout] Pulse Rate [ 76 From Monitor] Pulse Rate [ 77 Right Radial] Respiratory 20 18 Rate Respiratory 20 Rate [Bilateral Throughout] Blood Pressure Blood Pressure 100/59 [Right Arm] O2 Sat by Pulse 97 97 Oximetry 07/14/16 07/14/16 12:41 15:45 Temperature 97.9 F Pulse Rate 77 Pulse Rate [ Bilateral Throughout] Pulse Rate [ From Monitor] Pulse Rate [ 79 Right Radial] Respiratory 20 Rate Respiratory Rate [Bilateral Throughout] Blood Pressure 100/59 Blood Pressure 108/64 [Right Arm] O2 Sat by Pulse Oximetry Constitutional: no acute distress, alert Eyes: non-icteric ENT: oropharynx moist Neck: supple, no lymphadenopathy Ascultation: Bilateral: diminished breath sounds (prolonged expiratory phase. Decreased breath sounds left base.) Cardiovascular: regular rate and rhythm Gastrointestinal: normoactive bowel sounds, soft, non-tender Integumentary: normal Extremities: no cyanosis, no edema Neurologic: normal mental status, non-focal exam, pupils equal and round, CN II- XII normal Psychiatric: mood appropriate CBC and BMP: 07/14/16 06:49 07/14/16 06:49 ABG, PT/INR, D-dimer: ABG POC ABG pH 7.390 (7.35-7.45) 07/12/16 16:05 POC ABG pCO2 35.9 (35-45) 07/12/16 16:05 POC ABG pO2 61 (80-105) L 07/12/16 16:05 POC ABG HCO3 21.7 07/12/16 16:05 POC ABG Total CO2 23 07/12/16 16:05 POC ABG O2 Sat 91 07/12/16 16:05 PT/INR, D-dimer PT 14.2 Sec. (12.2-14.9) 07/14/16 06:49 INR 1.11 (0.87-1.13) 07/14/16 06:49 Abnormal lab findings: Abnormal Labs 07/12/16 07/12/16 07/12/16 06:20 06:20 16:05 WBC 13.1 H Hct 34.4 L MCHC 36 H RDW 17.1 H Lymph % (Auto) 11.8 L [place] % (Auto) Eos % (Auto) 9.8 H [place] # 0.9 H Eos # 1.3 H Baso # Seg Neutrophils % 71.0 H Seg Neutrophils # 9.3 H POC ABG pO2 61 L Creatinine 0.7 L Calcium 8.1 L ALT 6 L Albumin 3.4 L 07/14/16 07/14/16 06:49 06:49 WBC 15.1 H Hct MCHC 35 H RDW 17.2 H Lymph % (Auto) [place] % (Auto) 8.1 H Eos % (Auto) 10.6 H [place] # 1.2 H Eos # 1.6 H Baso # 0.2 H Seg Neutrophils % Seg Neutrophils # 9.9 H POC ABG pO2 Creatinine 0.7 L Calcium 8.3 L ALT Albumin
[2016-07-14] MEDS: ZOCOR PO SCH (21:04)
[2016-07-14] MEDS: LOVENOX SUB-Q SCH (21:04)
[2016-07-15] MEDS: ATROVENT IH SCH ×2 (08:11→20:57)
[2016-07-15] MEDS: BROVANA NEBU IH SCH ×2 (08:12→20:57)
[2016-07-15] MEDS: LEVAQUIN PO SCH (10:35)
[2016-07-15] MEDS: TOPROL XL PO SCH ×2 (10:35→11:31)
[2016-07-15] MEDS: ASPIRIN PO SCH (11:31)
[2016-07-15] MEDS: PLAVIX PO SCH (11:31)
--- NOTE | 2016-07-15 18:18 | Progress Note ---
Assessment and Plan Patient alert, awake. Sitting by the side of the bed. On 4 litres O2. O2 satuartion 94%. Patient is anxious and says he is under stress . Patient is on Plavix and Aspirin. Interventional radiology unable to to do thoracentesis. Patient told me But it is scheduled for tomorrow. Recommend to send pleural fluid for cytology, Cell count, LDH,Protein, Glucose, Amylase, Gram stain, C&S , AFB and Fungus. - Patient Problems (1) COPD exacerbation Current Visit: Yes Status: Acute Plan to address problem: O2 supplementation 3 litres. Brovanna/Atrovent aerosol treatments.q 12 hours. Continue S/C Lovenox. Continue Levaquine. (2) Pleural effusion, left Current Visit: Yes Status: Acute Plan to address problem: Ultrasound of chest reported about 400 ml loculated and slightly complex left pleural effusion. Recommend thoracentesis under ultrasound or CT guidance by interventional radiology. Sent pleural fluid for cytology, cell count, LDH, Protein, Glucose and amylase, gram stain C&S ,AFB and Fungus. Patient is on Plavix and Aspirin. Unable to do thoracentesis by interventional radiology today. Patient rescheduled for thoracentesis by interventional radiology on . (3) Pneumonia Current Visit: Yes Status: Acute Qualifiers: Pneumonia type: due to unspecified organism Aspiration pneumonia type: A Laterality: bilateral Lung location: unspecified part of lung Qualified Code (s): J18.9 - Pneumonia, unspecified organism Plan to address problem: Patient is on Levaquine. (4) STEMI (ST elevation myocardial infarction) Current Visit: No Status: Acute Qualifiers: Involved coronary artery: unspecified coronary artery Qualified Code(s): I21.3 - ST elevation (STEMI) myocardial infarction of unspecified site Plan to address problem: Management as per primary care and cardiology. Subjective Date of service: 07/15/16 Interval history: Patient alert, awake. Sitting by the side of the bed. On 4 litres O2. O2 satuartion 94%. Patient is anxious and says he is under stress . Patient is on Plavix and Aspirin. Interventional radiology unable to to do thoracentesis. Patient told me But it is scheduled for tomorrow. Recommend to send pleural fluid for cytology, Cell count, LDH,Protein, Glucose, Amylase, Gram stain, C&S , AFB and Fungus. Objective Vital Signs - 12hr 07/15/16 07/15/16 07/15/16 08:13 08:28 09:00 Temperature 98.4 F Pulse Rate [ 106 H 102 H Bilateral Throughout] Pulse Rate [ From Monitor] Pulse Rate [ 92 H Right Radial] Respiratory 20 Rate Respiratory 20 20 Rate [Bilateral Throughout] Blood Pressure [Left Radial Artery] Blood Pressure 102/65 [Right Arm] O2 Sat by Pulse 96 Oximetry 07/15/16 07/15/16 10:00 17:00 Temperature 97.9 F 98.1 F Pulse Rate [ Bilateral Throughout] Pulse Rate [ 103 H From Monitor] Pulse Rate [ 98 H Right Radial] Respiratory 18 18 Rate Respiratory Rate [Bilateral Throughout] Blood Pressure 100/64 [Left Radial Artery] Blood Pressure 102/64 [Right Arm] O2 Sat by Pulse 94 Oximetry Constitutional: no acute distress, alert Eyes: non-icteric ENT: oropharynx moist Neck: supple, no lymphadenopathy Ascultation: Bilateral: diminished breath sounds (prolonged expiratory phase. Decreased breath sounds left base.) Cardiovascular: regular rate and rhythm Gastrointestinal: normoactive bowel sounds, soft, non-tender Integumentary: normal Extremities: no cyanosis, no edema Neurologic: normal mental status, non-focal exam, pupils equal and round, CN II- XII normal Psychiatric: mood appropriate CBC and BMP: 07/14/16 06:49 07/14/16 06:49 ABG, PT/INR, D-dimer: ABG POC ABG pH 7.390 (7.35-7.45) 07/12/16 16:05 POC ABG pCO2 35.9 (35-45) 07/12/16 16:05 POC ABG pO2 61 (80-105) L 07/12/16 16:05 POC ABG HCO3 21.7 07/12/16 16:05 POC ABG Total CO2 23 07/12/16 16:05 POC ABG O2 Sat 91 07/12/16 16:05 PT/INR, D-dimer PT 14.2 Sec. (12.2-14.9) 07/14/16 06:49 INR 1.11 (0.87-1.13) 07/14/16 06:49 Abnormal lab findings: Abnormal Labs 07/12/16 07/12/16 07/12/16 06:20 06:20 16:05 WBC 13.1 H Hct 34.4 L MCHC 36 H RDW 17.1 H Lymph % (Auto) 11.8 L [place] % (Auto) Eos % (Auto) 9.8 H [place] # 0.9 H Eos # 1.3 H Baso # Seg Neutrophils % 71.0 H Seg Neutrophils # 9.3 H POC ABG pO2 61 L Creatinine 0.7 L Calcium 8.1 L ALT 6 L Albumin 3.4 L 07/14/16 07/14/16 06:49 06:49 WBC 15.1 H Hct MCHC 35 H RDW 17.2 H Lymph % (Auto) [place] % (Auto) 8.1 H Eos % (Auto) 10.6 H [place] # 1.2 H Eos # 1.6 H Baso # 0.2 H Seg Neutrophils % Seg Neutrophils # 9.9 H POC ABG pO2 Creatinine 0.7 L Calcium 8.3 L ALT Albumin
[2016-07-15] MEDS ORDERED: ATIVAN PO PRN (18:24)
--- NOTE | 2016-07-15 18:53 | Progress Note ---
Assessment and Plan Assessment and plan: --Complex Left-sided pleural effusion Plavix held , CT-guided thoracentesis tomorrow Pulmonary following --Right-sided pneumonia Continue IV antibiotics, follow cultures, cough medicine as needed Oxygen titrate to O2 sats more than 90% --Acute exacerbation of COPD We will manage with nebulizers, IV antibiotics, inhalation steroids --History of coronary artery disease status post PCI Continue current cardiac medications, aspirin and Plavix beta blockers and statins --DVT prophylaxis with Lovenox Home oxygen evaluation at this time of discharge Closely monitor the patient adjust management as needed Plan of care discussed with the patient and his nurse History Interval history: Patient seen and evaluated this morning medical records reviewed No new events reported by the nursing staff Patient's Plavix and aspirin was discontinued in preparation for ultrasound- guided thoracentesis tomorrow Denies any chest pain or shortness of breath Alert awake oriented 3 not in acute distress Hospitalist Physical - Constitutional Vitals: Temp Pulse Resp BP Pulse Ox 98.1 F 103 H 18 102/64 94 07/15/16 17:00 07/15/16 17:00 07/15/16 17:00 07/15/16 17:00 07/15/16 10:00 General appearance: Present: no acute distress, cachectic - EENT Eyes: Present: PERRL, EOM intact - Neck Neck: Present: supple, normal ROM - Respiratory Respiratory effort: normal Respiratory: bilateral: diminished, rhonchi - Cardiovascular Rhythm: regular Heart Sounds: Present: S1 & S2 - Extremities Extremities: no ischemia, pulses intact, pulses symmetrical Peripheral Pulses: within normal limits - Abdominal General gastrointestinal: soft, non-tender, non-distended, normal bowel sounds - Integumentary Integumentary: Present: clear, warm - Psychiatric Psychiatric: appropriate mood/affect, cooperative - Neurologic Neurologic: CNII-XII intact, moves all extremities Results - Labs CBC & Chem 7: 07/14/16 06:49 07/14/16 06:49 Labs: Laboratory Last Values WBC 15.1 K/mm3 (4.5-11.0) H 07/14/16 06:49 RBC 4.28 M/mm3 (3.65-5.03) 07/14/16 06:49 Hgb 12.9 gm/dl (11.8-15.2) 07/14/16 06:49 Hct 36.9 % (35.5-45.6) 07/14/16 06:49 MCV 86 fl (84-94) 07/14/16 06:49 MCH 30 pg (28-32) 07/14/16 06:49 MCHC 35 % (32-34) H 07/14/16 06:49 RDW 17.2 % (13.2-15.2) H 07/14/16 06:49 Plt Count 417 K/mm3 (140-440) 07/14/16 06:49 Lymph % (Auto) 14.3 % (13.4-35.0) 07/14/16 06:49 [place] % (Auto) 8.1 % (0.0-7.3) H 07/14/16 06:49 Eos % (Auto) 10.6 % (0.0-4.3) H 07/14/16 06:49 Baso % (Auto) 1.2 % (0.0-1.8) 07/14/16 06:49 Lymph # 2.2 K/mm3 (1.2-5.4) 07/14/16 06:49 [place] # 1.2 K/mm3 (0.0-0.8) H 07/14/16 06:49 Eos # 1.6 K/mm3 (0.0-0.4) H 07/14/16 06:49 Baso # 0.2 K/mm3 (0.0-0.1) H 07/14/16 06:49 Seg Neutrophils % 65.8 % (40.0-70.0) 07/14/16 06:49 Seg Neutrophils # 9.9 K/mm3 (1.8-7.7) H 07/14/16 06:49 PT 14.2 Sec. (12.2-14.9) 07/14/16 06:49 INR 1.11 (0.87-1.13) 07/14/16 06:49 APTT 32.0 Sec. (24.2-36.6) 07/14/16 06:49 POC ABG pH 7.390 (7.35-7.45) 07/12/16 16:05 POC ABG pCO2 35.9 (35-45) 07/12/16 16:05 POC ABG pO2 61 (80-105) L 07/12/16 16:05 POC ABG HCO3 21.7 07/12/16 16:05 POC ABG Total CO2 23 07/12/16 16:05 POC ABG O2 Sat 91 07/12/16 16:05 POC ABG Base Excess -3 07/12/16 16:05 FiO2 3 % 07/12/16 16:05 Sodium 137 mmol/L (137-145) 07/14/16 06:49 Potassium 4.2 mmol/L (3.6-5.0) 07/14/16 06:49 Chloride 101.0 mmol/L (98-107) 07/14/16 06:49 Carbon Dioxide 25 mmol/L (22-30) 07/14/16 06:49 Anion Gap 15 mmol/L 07/14/16 06:49 BUN 9 mg/dL (9-20) 07/14/16 06:49 Creatinine 0.7 mg/dL (0.8-1.5) L 07/14/16 06:49 Estimated GFR > 60 ml/min 07/14/16 06:49 BUN/Creatinine Ratio 12.85 % 07/14/16 06:49 Glucose 96 mg/dL (75-100) 07/14/16 06:49 POC Glucose 88 (70-105) 07/15/16 05:18 Calcium 8.3 mg/dL (8.4-10.2) L 07/14/16 06:49 Total Bilirubin 1.2 mg/dL (0.1-1.2) 07/12/16 06:20 AST 11 units/L (5-40) 07/12/16 06:20 ALT 6 units/L (7-56) L 07/12/16 06:20 Alkaline Phosphatase 57 units/L (35-129) 07/12/16 06:20 Troponin T < 0.010 ng/mL (0.00-0.029) 07/11/16 12:57 Total Protein 6.5 g/dL (6.3-8.2) 07/12/16 06:20 Albumin 3.4 g/dL (3.9-5) L 07/12/16 06:20 Albumin/Globulin Ratio 1.1 % 07/12/16 06:20
[2016-07-15] MEDS: PULMICORT IH SCH (20:57)
[2016-07-15] MEDS: ZOCOR PO SCH (22:43)
[2016-07-15] MEDS: LOVENOX SUB-Q SCH (22:45)
[2016-07-16] MEDS: ATROVENT IH SCH ×2 (08:06→20:20)
[2016-07-16] MEDS: BROVANA NEBU IH SCH ×2 (08:07→20:20)
[2016-07-16] MEDS: PULMICORT IH SCH ×2 (08:07→20:20)
[2016-07-16] MEDS: LEVAQUIN PO SCH (10:36)
[2016-07-16] MEDS: TOPROL XL PO SCH ×2 (10:36→12:03)
--- NOTE | 2016-07-16 11:16 | Progress Note ---
Assessment and Plan - Patient Problems (1) COPD exacerbation Current Visit: Yes Status: Acute Plan to address problem: - continue bronchodilators and pulmonary toilet - complete AB's course - s/p thoracentesis - wean oxygen for O2Sats > 92% (2) Pleural effusion, left Current Visit: Yes Status: Acute Plan to address problem: - exudative - follow cytology and cultures (3) Pneumonia Current Visit: Yes Status: Acute Qualifiers: Pneumonia type: due to unspecified organism Aspiration pneumonia type: A Laterality: bilateral Lung location: unspecified part of lung Qualified Code (s): J18.9 - Pneumonia, unspecified organism Plan to address problem: - complete AB's - ? parapneumonic effusion Subjective Date of service: 07/16/16 Principal diagnosis: Acute COPD exacerbation Interval history: Seen and examined at bedside; 24 hour events reviewed; nursing and respiratory care staff consulted; no adverse overnight events reported to me; s/p thoracentesis; no immediate complications; feels a little better; no gross or streaky hemoptysis Objective Vital Signs - 12hr 07/16/16 07/16/16 07/16/16 00:58 03:55 06:02 Temperature 98.2 F 98.7 F Pulse Rate 83 Pulse Rate [ 86 91 H Right Radial] Respiratory 18 20 Rate Blood Pressure 109/56 98/56 [Right Arm] O2 Sat by Pulse 95 94 Oximetry 07/16/16 08:00 Temperature 98 F Pulse Rate Pulse Rate [ 100 H Right Radial] Respiratory 18 Rate Blood Pressure 100/68 [Right Arm] O2 Sat by Pulse 95 Oximetry Constitutional: no acute distress, alert Eyes: non-icteric ENT: oropharynx moist Neck: supple, no lymphadenopathy Ascultation: Bilateral: clear, diminished breath sounds (prolonged expiratory phase. Decreased breath sounds left base.) Cardiovascular: regular rate and rhythm Gastrointestinal: normoactive bowel sounds, soft, non-tender Integumentary: normal Extremities: no cyanosis, no edema, pink and warm, pulses normal, no ischemia or petechiae Neurologic: normal mental status, non-focal exam, pupils equal and round, CN II- XII normal, motor strength normal and Psychiatric: mood appropriate, affect normal CBC and BMP: 07/14/16 06:49 07/14/16 06:49 ABG, PT/INR, D-dimer: ABG POC ABG pH 7.390 (7.35-7.45) 07/12/16 16:05 POC ABG pCO2 35.9 (35-45) 07/12/16 16:05 POC ABG pO2 61 (80-105) L 07/12/16 16:05 POC ABG HCO3 21.7 07/12/16 16:05 POC ABG Total CO2 23 07/12/16 16:05 POC ABG O2 Sat 91 07/12/16 16:05 PT/INR, D-dimer PT 14.2 Sec. (12.2-14.9) 07/14/16 06:49 INR 1.11 (0.87-1.13) 07/14/16 06:49 Abnormal lab findings: Abnormal Labs 07/12/16 07/12/16 07/12/16 06:20 06:20 16:05 WBC 13.1 H Hct 34.4 L MCHC 36 H RDW 17.1 H Lymph % (Auto) 11.8 L [place] % (Auto) Eos % (Auto) 9.8 H [place] # 0.9 H Eos # 1.3 H Baso # Seg Neutrophils % 71.0 H Seg Neutrophils # 9.3 H POC ABG pO2 61 L Creatinine 0.7 L Calcium 8.1 L ALT 6 L Albumin 3.4 L 07/14/16 07/14/16 06:49 06:49 WBC 15.1 H Hct MCHC 35 H RDW 17.2 H Lymph % (Auto) [place] % (Auto) 8.1 H Eos % (Auto) 10.6 H [place] # 1.2 H Eos # 1.6 H Baso # 0.2 H Seg Neutrophils % Seg Neutrophils # 9.9 H POC ABG pO2 Creatinine 0.7 L Calcium 8.3 L ALT Albumin Chest x-ray: image reviewed
--- NOTE | 2016-07-16 11:22 | Progress Note ---
Assessment and Plan Assessment and plan: --Complex Left-sided pleural effusion CT-guided thoracentesis and pleural fluid analysis today Aspirin and Plavix held,Pulmonary following --Right-sided pneumonia Continue IV antibiotics, follow cultures, cough medicine as needed Oxygen titrate to O2 sats more than 90% --Acute exacerbation of COPD We will manage with nebulizers, IV antibiotics, inhalation steroids --History of coronary artery disease status post PCI Continue current cardiac medications, aspirin and Plavix beta blockers and statins --DVT prophylaxis with Lovenox Home oxygen evaluation at this time of discharge Follow-up pleuracentesis and analysis of the fluid If negative and possible discharge in 1-2 days And of care discussed with patient is nurse as well as the case management History Interval history: Patient seen and evaluated medical records reviewed Scheduled for CT-guided thoracentesis today Patient complains of shortness of breath, denies chest pain Alert awake oriented 3 not in acute distress Hospitalist Physical - Constitutional Vitals: Temp Pulse Resp BP Pulse Ox 98 F 100 H 18 100/68 95 07/16/16 08:00 07/16/16 08:00 07/16/16 08:00 07/16/16 08:00 07/16/16 08:00 General appearance: Present: no acute distress, cachectic - EENT Eyes: Present: PERRL, EOM intact - Neck Neck: Present: supple, normal ROM - Respiratory Respiratory effort: normal Respiratory: bilateral: diminished (left more than right), negative: rhonchi - Cardiovascular Rhythm: regular Heart Sounds: Present: S1 & S2 - Extremities Extremities: no ischemia, pulses intact, pulses symmetrical Peripheral Pulses: within normal limits - Abdominal General gastrointestinal: soft, non-tender, non-distended, normal bowel sounds - Integumentary Integumentary: Present: clear, warm - Psychiatric Psychiatric: appropriate mood/affect, cooperative - Neurologic Neurologic: CNII-XII intact, moves all extremities Results - Labs CBC & Chem 7: 07/14/16 06:49 07/14/16 06:49 Labs: Laboratory Last Values WBC 15.1 K/mm3 (4.5-11.0) H 07/14/16 06:49 RBC 4.28 M/mm3 (3.65-5.03) 07/14/16 06:49 Hgb 12.9 gm/dl (11.8-15.2) 07/14/16 06:49 Hct 36.9 % (35.5-45.6) 07/14/16 06:49 MCV 86 fl (84-94) 07/14/16 06:49 MCH 30 pg (28-32) 07/14/16 06:49 MCHC 35 % (32-34) H 07/14/16 06:49 RDW 17.2 % (13.2-15.2) H 07/14/16 06:49 Plt Count 417 K/mm3 (140-440) 07/14/16 06:49 Lymph % (Auto) 14.3 % (13.4-35.0) 07/14/16 06:49 [place] % (Auto) 8.1 % (0.0-7.3) H 07/14/16 06:49 Eos % (Auto) 10.6 % (0.0-4.3) H 07/14/16 06:49 Baso % (Auto) 1.2 % (0.0-1.8) 07/14/16 06:49 Lymph # 2.2 K/mm3 (1.2-5.4) 07/14/16 06:49 [place] # 1.2 K/mm3 (0.0-0.8) H 07/14/16 06:49 Eos # 1.6 K/mm3 (0.0-0.4) H 07/14/16 06:49 Baso # 0.2 K/mm3 (0.0-0.1) H 07/14/16 06:49 Seg Neutrophils % 65.8 % (40.0-70.0) 07/14/16 06:49 Seg Neutrophils # 9.9 K/mm3 (1.8-7.7) H 07/14/16 06:49 PT 14.2 Sec. (12.2-14.9) 07/14/16 06:49 INR 1.11 (0.87-1.13) 07/14/16 06:49 APTT 32.0 Sec. (24.2-36.6) 07/14/16 06:49 POC ABG pH 7.390 (7.35-7.45) 07/12/16 16:05 POC ABG pCO2 35.9 (35-45) 07/12/16 16:05 POC ABG pO2 61 (80-105) L 07/12/16 16:05 POC ABG HCO3 21.7 07/12/16 16:05 POC ABG Total CO2 23 07/12/16 16:05 POC ABG O2 Sat 91 07/12/16 16:05 POC ABG Base Excess -3 07/12/16 16:05 FiO2 3 % 07/12/16 16:05 Sodium 137 mmol/L (137-145) 07/14/16 06:49 Potassium 4.2 mmol/L (3.6-5.0) 07/14/16 06:49 Chloride 101.0 mmol/L (98-107) 07/14/16 06:49 Carbon Dioxide 25 mmol/L (22-30) 07/14/16 06:49 Anion Gap 15 mmol/L 07/14/16 06:49 BUN 9 mg/dL (9-20) 07/14/16 06:49 Creatinine 0.7 mg/dL (0.8-1.5) L 07/14/16 06:49 Estimated GFR > 60 ml/min 07/14/16 06:49 BUN/Creatinine Ratio 12.85 % 07/14/16 06:49 Glucose 96 mg/dL (75-100) 07/14/16 06:49 POC Glucose 88 (70-105) 07/15/16 05:18 Calcium 8.3 mg/dL (8.4-10.2) L 07/14/16 06:49 Total Bilirubin 1.2 mg/dL (0.1-1.2) 07/12/16 06:20 AST 11 units/L (5-40) 07/12/16 06:20 ALT 6 units/L (7-56) L 07/12/16 06:20 Alkaline Phosphatase 57 units/L (35-129) 07/12/16 06:20 Troponin T < 0.010 ng/mL (0.00-0.029) 07/11/16 12:57 Total Protein 6.5 g/dL (6.3-8.2) 07/12/16 06:20 Albumin 3.4 g/dL (3.9-5) L 07/12/16 06:20 Albumin/Globulin Ratio 1.1 % 07/12/16 06:20
[2016-07-16] MEDS: PLAVIX PO SCH (12:03)
[2016-07-16] MEDS: ASPIRIN PO SCH (12:03)
--- NOTE | 2016-07-16 12:32 | Procedure Note ---
Date of procedure: 07/16/16 Pre-op diagnosis: Pleural effusion Post-op diagnosis: same Procedure: Thoracentesis Anesthesia: local Surgeon: JADYN SHAW Estimated blood loss: none Specimen disposition: to lab Condition: stable Disposition: floor
--- NOTE | 2016-07-16 12:57 | XRay Report ---
AP chest x-ray. History: Status post left thoracentesis. Findings: Severe emphysematous changes are again apparent, most pronounced in the left upper lung zone. There has been no interval change since the previous study, and there is no evidence of pneumothorax. Residual small left pleural effusion is noted. 2 L of pleural fluid were aspirated by thoracentesis just prior to this study.
--- NOTE | 2016-07-16 13:14 | Ultrasound Report ---
Ultrasound-guided thoracentesis. Procedure: The patient's skin surface overlying the left lateral hemithorax was prepped and draped using sterile technique and local anesthetic was injected into the skin. Using sonographic guidance, a 5 [place] catheter was inserted into the posterior lateral pleural fluid collection. 2 L of serosanguineous fluid was aspirated, and appropriate samples percent to the laboratory. The patient tolerated the procedure well clinically. A post thoracentesis chest x-ray was ordered, and the patient was sent to the floor as an inpatient in satisfactory condition.
[2016-07-16 13:21] LABS: Total Protein,Body Fluid 4.7 (15.0-45.0)
[2016-07-16 14:07] LABS: Reactive Lymph Body Fluid 0 %
[2016-07-16 14:19] LABS: Basophils Body Fluid 0 %
[2016-07-16 20:34] LABS: LDH,Body Fluid 279
[2016-07-16] MEDS: DILAUDID IV PRN (23:00)
[2016-07-16] MEDS: LOVENOX SUB-Q SCH (23:00)
[2016-07-16] MEDS: ZOCOR PO SCH (23:00)
[2016-07-17 06:47] LABS: Basophils % (Auto) 1.1 % (0.0-1.8); Eosinophils % (Auto) 3.2 % (0.0-4.3); Hematocrit 34.1 % (35.5-45.6); Hemoglobin 12.2 gm/dl (11.8-15.2); Mean Corpuscular HGB Conc 36 % (32-34); Mean Corpuscular Hemoglobin 30 pg (28-32); Mean Corpuscular Volume 85 fl (84-94); Platelet Count 361 K/mm3 (140-440); Red Blood Count 4.02 M/mm3 (3.65-5.03); White Blood Count 13.9 K/mm3 (4.5-11.0)
[2016-07-17] MEDS: PULMICORT IH SCH ×2 (07:19→20:20)
[2016-07-17] MEDS: ATROVENT IH SCH ×3 (07:19→20:37)
[2016-07-17] MEDS: BROVANA NEBU IH SCH ×2 (07:19→20:20)
[2016-07-17] MEDS: ASPIRIN PO SCH (10:04)
[2016-07-17] MEDS: LEVAQUIN PO SCH (10:04)
[2016-07-17] MEDS: TOPROL XL PO SCH (10:04)
[2016-07-17] MEDS: PLAVIX PO SCH (10:04)
[2016-07-17] MEDS: DILAUDID IV PRN ×2 (10:14→18:07)
--- NOTE | 2016-07-17 11:12 | Progress Note ---
Assessment and Plan - Patient Problems (1) COPD exacerbation Current Visit: Yes Status: Acute Plan to address problem: - continue bronchodilators and pulmonary toilet - complete AB's course - s/p thoracentesis - wean oxygen for O2Sats > 92% - folow cytology report (2) Pleural effusion, left Current Visit: Yes Status: Acute Plan to address problem: - exudative - follow cytology and cultures (3) Pneumonia Current Visit: Yes Status: Acute Qualifiers: Pneumonia type: due to unspecified organism Aspiration pneumonia type: A Laterality: bilateral Lung location: unspecified part of lung Qualified Code (s): J18.9 - Pneumonia, unspecified organism Plan to address problem: - complete AB's - ? parapneumonic effusion Subjective Date of service: 07/17/16 Principal diagnosis: Acute COPD exacerbation Interval history: Seen and examined at bedside; 24 hour events reviewed; nursing and respiratory care staff consulted; no adverse overnight events reported to me; resting in bed ; remains on supplemental oxygen; denies acute chest pains or increased SOB; No n/V/F/C Objective Vital Signs - 12hr 07/17/16 07/17/16 07/17/16 04:58 07:19 07:30 Temperature 99.7 F H Pulse Rate Pulse Rate [ 104 H 110 H Bilateral Throughout] Pulse Rate [ From Monitor] Pulse Rate [ 118 H Right Radial] Respiratory 20 Rate Respiratory 20 20 Rate [Bilateral Throughout] Respiratory Rate [Left Upper Lateral] Blood Pressure 90/51 [Right Arm] O2 Sat by Pulse 92 Oximetry 07/17/16 07/17/16 07/17/16 08:00 08:39 08:40 Temperature 98.3 F Pulse Rate Pulse Rate [ Bilateral Throughout] Pulse Rate [ 113 H From Monitor] Pulse Rate [ 108 H Right Radial] Respiratory 20 18 Rate Respiratory Rate [Bilateral Throughout] Respiratory 18 Rate [Left Upper Lateral] Blood Pressure 96/56 [Right Arm] O2 Sat by Pulse 97 Oximetry 07/17/16 10:04 Temperature Pulse Rate 113 H Pulse Rate [ Bilateral Throughout] Pulse Rate [ From Monitor] Pulse Rate [ Right Radial] Respiratory Rate Respiratory Rate [Bilateral Throughout] Respiratory Rate [Left Upper Lateral] Blood Pressure [Right Arm] O2 Sat by Pulse Oximetry Constitutional: no acute distress, alert Eyes: non-icteric ENT: oropharynx moist Neck: supple, no lymphadenopathy Effort: mildly labored Ascultation: Bilateral: diminished breath sounds (prolonged expiratory phase. Decreased breath sounds left base.), rales (bases) Cardiovascular: regular rate and rhythm Gastrointestinal: normoactive bowel sounds, soft, non-tender, non-distended Integumentary: normal Extremities: no cyanosis, no edema, pink and warm, pulses normal, no ischemia or petechiae Neurologic: normal mental status, non-focal exam, pupils equal and round, CN II- XII normal, motor strength normal and Psychiatric: mood appropriate, affect normal CBC and BMP: 07/17/16 05:19 07/14/16 06:49 ABG, PT/INR, D-dimer: ABG POC ABG pH 7.390 (7.35-7.45) 07/12/16 16:05 POC ABG pCO2 35.9 (35-45) 07/12/16 16:05 POC ABG pO2 61 (80-105) L 07/12/16 16:05 POC ABG HCO3 21.7 07/12/16 16:05 POC ABG Total CO2 23 07/12/16 16:05 POC ABG O2 Sat 91 07/12/16 16:05 PT/INR, D-dimer PT 14.2 Sec. (12.2-14.9) 07/14/16 06:49 INR 1.11 (0.87-1.13) 07/14/16 06:49 Abnormal lab findings: Abnormal Labs 07/12/16 07/12/16 07/12/16 06:20 06:20 16:05 WBC 13.1 H Hct 34.4 L MCHC 36 H RDW 17.1 H Lymph % (Auto) 11.8 L [place] % (Auto) Eos % (Auto) 9.8 H [place] # 0.9 H Eos # 1.3 H Baso # Seg Neutrophils % 71.0 H Seg Neutrophils # 9.3 H POC ABG pO2 61 L Creatinine 0.7 L Calcium 8.1 L ALT 6 L Albumin 3.4 L Fluid Total Protein 07/14/16 07/14/16 07/16/16 06:49 06:49 Unknown WBC 15.1 H Hct MCHC 35 H RDW 17.2 H Lymph % (Auto) [place] % (Auto) 8.1 H Eos % (Auto) 10.6 H [place] # 1.2 H Eos # 1.6 H Baso # 0.2 H Seg Neutrophils % Seg Neutrophils # 9.9 H POC ABG pO2 Creatinine 0.7 L Calcium 8.3 L ALT Albumin Fluid Total Protein 4.7 L 07/17/16 05:19 WBC 13.9 H Hct 34.1 L MCHC 36 H RDW 17.0 H Lymph % (Auto) 11.2 L [place] % (Auto) 11.2 H Eos % (Auto) [place] # 1.5 H Eos # Baso # 0.2 H Seg Neutrophils % 73.3 H Seg Neutrophils # 10.2 H POC ABG pO2 Creatinine Calcium ALT Albumin Fluid Total Protein
--- NOTE | 2016-07-17 18:59 | Progress Note ---
Assessment and Plan Assessment and plan: --Complex Left-sided pleural effusion s/p CT-guided thoracentesis , f/u pleural fluid analysis Aspirin and Plavix held,Pulmonary following Pleural fluid positive for malignant cells Possible CT chest tomorrow --Right-sided pneumonia Continue IV antibiotics, follow cultures, cough medicine as needed Oxygen titrate to O2 sats more than 90% --Acute exacerbation of COPD We will manage with nebulizers, IV antibiotics, inhalation steroids --History of coronary artery disease status post PCI Continue current cardiac medications, aspirin and Plavix beta blockers and statins --DVT prophylaxis with Lovenox Home oxygen evaluation at this time of discharge History Interval history: Patient seen and evaluated medical records reviewed Patient patient looks chronically ill, cachectic Pleural fluid positive for malignant cells We will plan CT-guided biopsy Alert awake oriented 3 in mild distress Hospitalist Physical - Constitutional Vitals: Temp Pulse Resp BP Pulse Ox 98.6 F 94 H 20 98/56 97 07/17/16 16:00 07/17/16 18:35 07/17/16 18:35 07/17/16 16:00 07/17/16 08:00 General appearance: Present: no acute distress, cachectic - EENT Eyes: Present: PERRL, EOM intact - Neck Neck: Present: supple, normal ROM - Respiratory Respiratory effort: normal Respiratory: bilateral: diminished, rhonchi - Cardiovascular Rhythm: regular Heart Sounds: Present: S1 & S2 - Extremities Extremities: no ischemia, pulses intact, pulses symmetrical Peripheral Pulses: within normal limits - Abdominal General gastrointestinal: soft, non-tender, non-distended, normal bowel sounds - Integumentary Integumentary: Present: clear, warm - Psychiatric Psychiatric: appropriate mood/affect, cooperative - Neurologic Neurologic: CNII-XII intact, moves all extremities Results - Labs CBC & Chem 7: 07/17/16 05:19 07/14/16 06:49 Labs: Laboratory Last Values WBC 13.9 K/mm3 (4.5-11.0) H 07/17/16 05:19 RBC 4.02 M/mm3 (3.65-5.03) 07/17/16 05:19 Hgb 12.2 gm/dl (11.8-15.2) 07/17/16 05:19 Hct 34.1 % (35.5-45.6) L 07/17/16 05:19 MCV 85 fl (84-94) 07/17/16 05:19 MCH 30 pg (28-32) 07/17/16 05:19 MCHC 36 % (32-34) H 07/17/16 05:19 RDW 17.0 % (13.2-15.2) H 07/17/16 05:19 Plt Count 361 K/mm3 (140-440) 07/17/16 05:19 Lymph % (Auto) 11.2 % (13.4-35.0) L 07/17/16 05:19 [place] % (Auto) 11.2 % (0.0-7.3) H 07/17/16 05:19 Eos % (Auto) 3.2 % (0.0-4.3) 07/17/16 05:19 Baso % (Auto) 1.1 % (0.0-1.8) 07/17/16 05:19 Lymph # 1.5 K/mm3 (1.2-5.4) 07/17/16 05:19 [place] # 1.5 K/mm3 (0.0-0.8) H 07/17/16 05:19 Eos # 0.4 K/mm3 (0.0-0.4) 07/17/16 05:19 Baso # 0.2 K/mm3 (0.0-0.1) H 07/17/16 05:19 Seg Neutrophils % 73.3 % (40.0-70.0) H 07/17/16 05:19 Seg Neutrophils # 10.2 K/mm3 (1.8-7.7) H 07/17/16 05:19 PT 14.2 Sec. (12.2-14.9) 07/14/16 06:49 INR 1.11 (0.87-1.13) 07/14/16 06:49 APTT 32.0 Sec. (24.2-36.6) 07/14/16 06:49 POC ABG pH 7.390 (7.35-7.45) 07/12/16 16:05 POC ABG pCO2 35.9 (35-45) 07/12/16 16:05 POC ABG pO2 61 (80-105) L 07/12/16 16:05 POC ABG HCO3 21.7 07/12/16 16:05 POC ABG Total CO2 23 07/12/16 16:05 POC ABG O2 Sat 91 07/12/16 16:05 POC ABG Base Excess -3 07/12/16 16:05 FiO2 3 % 07/12/16 16:05 Sodium 137 mmol/L (137-145) 07/14/16 06:49 Potassium 4.2 mmol/L (3.6-5.0) 07/14/16 06:49 Chloride 101.0 mmol/L (98-107) 07/14/16 06:49 Carbon Dioxide 25 mmol/L (22-30) 07/14/16 06:49 Anion Gap 15 mmol/L 07/14/16 06:49 BUN 9 mg/dL (9-20) 07/14/16 06:49 Creatinine 0.7 mg/dL (0.8-1.5) L 07/14/16 06:49 Estimated GFR > 60 ml/min 07/14/16 06:49 BUN/Creatinine Ratio 12.85 % 07/14/16 06:49 Glucose 96 mg/dL (75-100) 07/14/16 06:49 POC Glucose 88 (70-105) 07/15/16 05:18 Calcium 8.3 mg/dL (8.4-10.2) L 07/14/16 06:49 Total Bilirubin 1.2 mg/dL (0.1-1.2) 07/12/16 06:20 AST 11 units/L (5-40) 07/12/16 06:20 ALT 6 units/L (7-56) L 07/12/16 06:20 Alkaline Phosphatase 57 units/L (35-129) 07/12/16 06:20 Troponin T < 0.010 ng/mL (0.00-0.029) 07/11/16 12:57 Total Protein 6.5 g/dL (6.3-8.2) 07/12/16 06:20 Albumin 3.4 g/dL (3.9-5) L 07/12/16 06:20 Albumin/Globulin Ratio 1.1 % 07/12/16 06:20 Fluid Type Thoracentesis 07/16/16 Unknown Fluid Color [place] 07/16/16 Unknown Fluid Appearance Turbid 07/16/16 Unknown Fluid WBC 1650 /mm3 07/16/16 Unknown Fluid RBC 250 /mm3 07/16/16 Unknown Fluid Diff Comment 07/16/16 Unknown Fluid Seg Neutrophils 9.0 % 07/16/16 Unknown Fluid Lymphocytes 2.0 % 07/16/16 Unknown Fluid Reactive Lymphs 0 % 07/16/16 Unknown Fluid Monocytes 67.0 % 07/16/16 Unknown Fluid Eosinophils 22.0 % 07/16/16 Unknown Fluid Basophils 0 % 07/16/16 Unknown Fluid Glucose 55 mg/dL (40-70) 07/16/16 Unknown Fluid Total Protein 4.7 (15.0-45.0) L 07/16/16 Unknown Fluid LDH 279 07/16/16 Unknown Fluid Amylase 13 07/16/16 Unknown Fluid Comment See add'l 07/16/16 Unknown
[2016-07-17] MEDS: ZOCOR PO SCH (21:40)
[2016-07-17] MEDS: LOVENOX SUB-Q SCH (21:40)
[2016-07-18] MEDS: ATROVENT IH SCH ×2 (08:00→21:37)
[2016-07-18] MEDS: BROVANA NEBU IH SCH ×2 (08:00→21:38)
[2016-07-18] MEDS: PULMICORT IH SCH ×2 (08:00→21:37)
[2016-07-18] MEDS: DILAUDID IV PRN ×2 (08:03→23:42)
[2016-07-18] MEDS: TOPROL XL PO SCH (11:00)
[2016-07-18] MEDS: ASPIRIN PO SCH (11:00)
[2016-07-18] MEDS: PLAVIX PO SCH (11:01)
[2016-07-18] MEDS: LEVAQUIN PO SCH (11:02)
--- NOTE | 2016-07-18 11:06 | Progress Note ---
Assessment and Plan - Patient Problems (1) COPD exacerbation Current Visit: Yes Status: Acute Plan to address problem: - continue bronchodilators and pulmonary toilet - complete AB's course - s/p thoracentesis - wean oxygen for O2Sats > 92% - folow cytology report (2) Pleural effusion, left Current Visit: Yes Status: Acute Plan to address problem: - exudative - malignant; primary unclear at this point (3) Pneumonia Current Visit: Yes Status: Acute Qualifiers: Pneumonia type: due to unspecified organism Aspiration pneumonia type: A Laterality: bilateral Lung location: unspecified part of lung Qualified Code (s): J18.9 - Pneumonia, unspecified organism Plan to address problem: - complete AB's - continue supplemental oxygen and wean for O2 Sats > 94% - follow CT chest Subjective Date of service: 07/18/16 Principal diagnosis: Acute COPD exacerbation Interval history: Seen and examined at bedside; 24 hour events reviewed; nursing and respiratory care staff consulted; no adverse overnight events reported to me; remains on supplemental oxygen; no N/V/F/C; denies hemoptysis; i discussed positive cytology report with him and CT chest ordered to look for primary lesion Objective Vital Signs - 12hr 07/18/16 07/18/16 07/18/16 04:00 07:45 08:01 Temperature 98.9 F 99.7 F H Pulse Rate [ 109 H Bilateral Throughout] Pulse Rate [ 118 H From Monitor] Pulse Rate [ 107 H Right Radial] Respiratory 20 18 Rate Respiratory 16 Rate [Bilateral Throughout] Blood Pressure 97/55 94/59 [Right Arm] O2 Sat by Pulse 90 Oximetry 07/18/16 07/18/16 08:04 08:09 Temperature Pulse Rate [ Bilateral Throughout] Pulse Rate [ From Monitor] Pulse Rate [ Right Radial] Respiratory 24 Rate Respiratory Rate [Bilateral Throughout] Blood Pressure [Right Arm] O2 Sat by Pulse 94 96 Oximetry Constitutional: no acute distress, alert Eyes: non-icteric ENT: oropharynx moist Neck: supple, no lymphadenopathy Ascultation: Bilateral: diminished breath sounds (prolonged expiratory phase), rales Cardiovascular: regular rate and rhythm Gastrointestinal: normoactive bowel sounds, soft, non-tender, non-distended Integumentary: normal Extremities: no cyanosis, no edema, pink and warm, pulses normal, no ischemia or petechiae Neurologic: normal mental status, non-focal exam, pupils equal and round, CN II- XII normal, motor strength normal and Psychiatric: mood appropriate, affect normal CBC and BMP: 07/17/16 05:19 07/14/16 06:49 ABG, PT/INR, D-dimer: ABG POC ABG pH 7.390 (7.35-7.45) 07/12/16 16:05 POC ABG pCO2 35.9 (35-45) 07/12/16 16:05 POC ABG pO2 61 (80-105) L 07/12/16 16:05 POC ABG HCO3 21.7 07/12/16 16:05 POC ABG Total CO2 23 07/12/16 16:05 POC ABG O2 Sat 91 07/12/16 16:05 PT/INR, D-dimer PT 14.2 Sec. (12.2-14.9) 07/14/16 06:49 INR 1.11 (0.87-1.13) 07/14/16 06:49 Abnormal lab findings: Abnormal Labs 07/12/16 07/12/16 07/12/16 06:20 06:20 16:05 WBC 13.1 H Hct 34.4 L MCHC 36 H RDW 17.1 H Lymph % (Auto) 11.8 L [place] % (Auto) Eos % (Auto) 9.8 H [place] # 0.9 H Eos # 1.3 H Baso # Seg Neutrophils % 71.0 H Seg Neutrophils # 9.3 H POC ABG pO2 61 L Creatinine 0.7 L Calcium 8.1 L ALT 6 L Albumin 3.4 L Fluid Total Protein 07/14/16 07/14/16 07/16/16 06:49 06:49 Unknown WBC 15.1 H Hct MCHC 35 H RDW 17.2 H Lymph % (Auto) [place] % (Auto) 8.1 H Eos % (Auto) 10.6 H [place] # 1.2 H Eos # 1.6 H Baso # 0.2 H Seg Neutrophils % Seg Neutrophils # 9.9 H POC ABG pO2 Creatinine 0.7 L Calcium 8.3 L ALT Albumin Fluid Total Protein 4.7 L 07/17/16 05:19 WBC 13.9 H Hct 34.1 L MCHC 36 H RDW 17.0 H Lymph % (Auto) 11.2 L [place] % (Auto) 11.2 H Eos % (Auto) [place] # 1.5 H Eos # Baso # 0.2 H Seg Neutrophils % 73.3 H Seg Neutrophils # 10.2 H POC ABG pO2 Creatinine Calcium ALT Albumin Fluid Total Protein
[2016-07-18] MEDS ORDERED: NACL ONE (11:18)
--- NOTE | 2016-07-18 12:14 | Progress Note ---
Assessment and Plan Assessment and plan: --Complex Left-sided pleural effusion s/p CT-guided thoracentesis , f/u pleural fluid analysis Aspirin and Plavix held,Pulmonary following Pleural fluid positive for malignant cells Follow CT chest --Right-sided pneumonia Continue IV antibiotics, follow cultures, cough medicine as needed Oxygen titrate to O2 sats more than 90% --Acute exacerbation of COPD We will manage with nebulizers, IV antibiotics, inhalation steroids --History of coronary artery disease status post PCI Continue current cardiac medications, aspirin and Plavix beta blockers and statins --DVT prophylaxis with Lovenox Home oxygen evaluation at this time of discharge History Interval history: Patient seen and evaluated medically severe Patient complaints of shortness of breath Was scheduled CT chest today Alert awake oriented 3 not in acute distress Hospitalist Physical - Constitutional Vitals: Temp Pulse Resp BP Pulse Ox 99.0 F 96 H 20 96/60 96 07/18/16 11:25 07/18/16 11:25 07/18/16 11:25 07/18/16 11:25 07/18/16 08:09 General appearance: Present: no acute distress, cachectic - EENT Eyes: Present: PERRL, EOM intact - Neck Neck: Present: supple, normal ROM - Respiratory Respiratory effort: normal Respiratory: bilateral: diminished, rhonchi - Cardiovascular Rhythm: regular Heart Sounds: Present: S1 & S2 - Extremities Extremities: no ischemia, pulses intact, pulses symmetrical Peripheral Pulses: within normal limits - Abdominal General gastrointestinal: soft, non-tender, non-distended, normal bowel sounds - Integumentary Integumentary: Present: clear, warm - Psychiatric Psychiatric: appropriate mood/affect, cooperative - Neurologic Neurologic: CNII-XII intact, moves all extremities Results - Labs CBC & Chem 7: 07/17/16 05:19 07/14/16 06:49 Labs: Laboratory Last Values WBC 13.9 K/mm3 (4.5-11.0) H 07/17/16 05:19 RBC 4.02 M/mm3 (3.65-5.03) 07/17/16 05:19 Hgb 12.2 gm/dl (11.8-15.2) 07/17/16 05:19 Hct 34.1 % (35.5-45.6) L 07/17/16 05:19 MCV 85 fl (84-94) 07/17/16 05:19 MCH 30 pg (28-32) 07/17/16 05:19 MCHC 36 % (32-34) H 07/17/16 05:19 RDW 17.0 % (13.2-15.2) H 07/17/16 05:19 Plt Count 361 K/mm3 (140-440) 07/17/16 05:19 Lymph % (Auto) 11.2 % (13.4-35.0) L 07/17/16 05:19 [place] % (Auto) 11.2 % (0.0-7.3) H 07/17/16 05:19 Eos % (Auto) 3.2 % (0.0-4.3) 07/17/16 05:19 Baso % (Auto) 1.1 % (0.0-1.8) 07/17/16 05:19 Lymph # 1.5 K/mm3 (1.2-5.4) 07/17/16 05:19 [place] # 1.5 K/mm3 (0.0-0.8) H 07/17/16 05:19 Eos # 0.4 K/mm3 (0.0-0.4) 07/17/16 05:19 Baso # 0.2 K/mm3 (0.0-0.1) H 07/17/16 05:19 Seg Neutrophils % 73.3 % (40.0-70.0) H 07/17/16 05:19 Seg Neutrophils # 10.2 K/mm3 (1.8-7.7) H 07/17/16 05:19 PT 14.2 Sec. (12.2-14.9) 07/14/16 06:49 INR 1.11 (0.87-1.13) 07/14/16 06:49 APTT 32.0 Sec. (24.2-36.6) 07/14/16 06:49 POC ABG pH 7.390 (7.35-7.45) 07/12/16 16:05 POC ABG pCO2 35.9 (35-45) 07/12/16 16:05 POC ABG pO2 61 (80-105) L 07/12/16 16:05 POC ABG HCO3 21.7 07/12/16 16:05 POC ABG Total CO2 23 07/12/16 16:05 POC ABG O2 Sat 91 07/12/16 16:05 POC ABG Base Excess -3 07/12/16 16:05 FiO2 3 % 07/12/16 16:05 Sodium 137 mmol/L (137-145) 07/14/16 06:49 Potassium 4.2 mmol/L (3.6-5.0) 07/14/16 06:49 Chloride 101.0 mmol/L (98-107) 07/14/16 06:49 Carbon Dioxide 25 mmol/L (22-30) 07/14/16 06:49 Anion Gap 15 mmol/L 07/14/16 06:49 BUN 9 mg/dL (9-20) 07/14/16 06:49 Creatinine 0.7 mg/dL (0.8-1.5) L 07/14/16 06:49 Estimated GFR > 60 ml/min 07/14/16 06:49 BUN/Creatinine Ratio 12.85 % 07/14/16 06:49 Glucose 96 mg/dL (75-100) 07/14/16 06:49 POC Glucose 88 (70-105) 07/15/16 05:18 Calcium 8.3 mg/dL (8.4-10.2) L 07/14/16 06:49 Total Bilirubin 1.2 mg/dL (0.1-1.2) 07/12/16 06:20 AST 11 units/L (5-40) 07/12/16 06:20 ALT 6 units/L (7-56) L 07/12/16 06:20 Alkaline Phosphatase 57 units/L (35-129) 07/12/16 06:20 Troponin T < 0.010 ng/mL (0.00-0.029) 07/11/16 12:57 Total Protein 6.5 g/dL (6.3-8.2) 07/12/16 06:20 Albumin 3.4 g/dL (3.9-5) L 07/12/16 06:20 Albumin/Globulin Ratio 1.1 % 07/12/16 06:20 Fluid Type Thoracentesis 07/16/16 Unknown Fluid Color [place] 07/16/16 Unknown Fluid Appearance Turbid 07/16/16 Unknown Fluid WBC 1650 /mm3 07/16/16 Unknown Fluid RBC 250 /mm3 07/16/16 Unknown Fluid Diff Comment 07/16/16 Unknown Fluid Seg Neutrophils 9.0 % 07/16/16 Unknown Fluid Lymphocytes 2.0 % 07/16/16 Unknown Fluid Reactive Lymphs 0 % 07/16/16 Unknown Fluid Monocytes 67.0 % 07/16/16 Unknown Fluid Eosinophils 22.0 % 07/16/16 Unknown Fluid Basophils 0 % 07/16/16 Unknown Fluid Glucose 55 mg/dL (40-70) 07/16/16 Unknown Fluid Total Protein 4.7 (15.0-45.0) L 07/16/16 Unknown Fluid LDH 279 07/16/16 Unknown Fluid Amylase 13 07/16/16 Unknown Fluid Comment See add'l 07/16/16 Unknown
--- NOTE | 2016-07-18 13:32 | Cat Scan Report ---
CTA chest: PA protocol. History: Chest pain, malignant effusion. Findings: No evidence of aortic aneurysm.. No evidence of pulmonary embolism. Pulmonary trunk and right and left pulmonary artery dilated secondary to pulmonary arterial hypertension. Extensive large bulla bilaterally being more pronounced on the left side. It is more pronounced in the upper lobes. There is chronic interstitial lung changes also noted bilaterally. Suspicion of acute interstitial infiltrates left lower lobe. Several small noncalcified nodules are identified at the right lung and left lung. The largest measures 0.6 cm and appears ill-defined, seen on series 5 image 208. There is left pleural effusion with loculated areas of pleural effusion along the oblique fissure. Impression: No evidence of pulmonary embolism. Evidence of pulmonary arterial hypertension. Extensive multiple bulla and scarring bilaterally. Nodularity is also noted in the lung parenchyma as described. Left pleural effusion with areas of loculated pleural effusion extending into the oblique fissure.
[2016-07-18] MEDS: ZOCOR PO SCH (23:32)
[2016-07-18] MEDS: LOVENOX SUB-Q SCH (23:32)
[2016-07-19] MEDS: ATROVENT IH SCH ×2 (07:34→19:45)
[2016-07-19] MEDS: PULMICORT IH SCH ×2 (07:34→19:45)
[2016-07-19] MEDS: BROVANA NEBU IH SCH ×2 (07:34→19:45)
[2016-07-19] MEDS: TOPROL XL PO SCH (11:59)
[2016-07-19] MEDS: LEVAQUIN PO SCH (11:59)
[2016-07-19] MEDS: ASPIRIN PO SCH (11:59)
[2016-07-19] MEDS: PLAVIX PO SCH (11:59)
--- NOTE | 2016-07-19 12:40 | Progress Note ---
Assessment and Plan - Patient Problems (1) COPD exacerbation Current Visit: Yes Status: Acute Plan to address problem: - continue bronchodilators and pulmonary toilet - complete AB's course - s/p thoracentesis - continue to wean oxygen for O2Sats > 92% (2) Pleural effusion, left Current Visit: Yes Status: Acute Plan to address problem: - exudative - malignant; primary unclear at this point - CT chest without sentinel lesion - needs oncology evaluation (3) Pneumonia Current Visit: Yes Status: Acute Qualifiers: Pneumonia type: due to unspecified organism Aspiration pneumonia type: A Laterality: bilateral Lung location: unspecified part of lung Qualified Code (s): J18.9 - Pneumonia, unspecified organism Plan to address problem: - complete AB's - continue supplemental oxygen and wean for O2 Sats > 94% - CT chest reviewed and no obvious mass; the subcentimeter nodules may be metastatic Subjective Date of service: 07/19/16 Principal diagnosis: Acute COPD exacerbation Interval history: Seen and examined at bedside; 24 hour events reviewed; nursing and respiratory care staff consulted; no adverse overnight events reported to me; no new issues ; remains SOB; no hemoptysis; s/p CT chest Objective Vital Signs - 12hr 07/19/16 07/19/16 07/19/16 05:00 07:20 07:30 Temperature 100.8 F H Pulse Rate [ 118 H 115 H Bilateral Throughout] Pulse Rate [ 118 H Left] Respiratory 24 Rate Respiratory 18 18 Rate [Bilateral Throughout] Blood Pressure 94/59 [Left Arm] Blood Pressure [Right Arm] O2 Sat by Pulse Oximetry 07/19/16 07/19/16 08:20 08:55 Temperature 99.0 F Pulse Rate [ Bilateral Throughout] Pulse Rate [ 114 H Left] Respiratory 20 Rate Respiratory Rate [Bilateral Throughout] Blood Pressure [Left Arm] Blood Pressure 91/60 [Right Arm] O2 Sat by Pulse 92 96 Oximetry Constitutional: alert, appears uncomfortable Eyes: non-icteric ENT: oropharynx moist Neck: supple, no lymphadenopathy Effort: mildly labored Ascultation: Bilateral: diminished breath sounds (prolonged expiratory phase), rales (bases), other (diminished bilateral BS) Cardiovascular: regular rate and rhythm Gastrointestinal: normoactive bowel sounds, soft, non-tender, non-distended Integumentary: normal Extremities: no cyanosis, no edema, pink and warm, pulses normal, no ischemia or petechiae Neurologic: normal mental status, non-focal exam, pupils equal and round, motor strength normal and Psychiatric: mood appropriate, depressed CBC and BMP: 07/20/16 04:50 07/20/16 04:50 ABG, PT/INR, D-dimer: ABG POC ABG pH 7.390 (7.35-7.45) 07/12/16 16:05 POC ABG pCO2 35.9 (35-45) 07/12/16 16:05 POC ABG pO2 61 (80-105) L 07/12/16 16:05 POC ABG HCO3 21.7 07/12/16 16:05 POC ABG Total CO2 23 07/12/16 16:05 POC ABG O2 Sat 91 07/12/16 16:05 PT/INR, D-dimer PT 14.2 Sec. (12.2-14.9) 07/14/16 06:49 INR 1.11 (0.87-1.13) 07/14/16 06:49 Abnormal lab findings: Abnormal Labs 07/12/16 07/12/16 07/12/16 06:20 06:20 16:05 WBC 13.1 H Hct 34.4 L MCHC 36 H RDW 17.1 H Lymph % (Auto) 11.8 L [place] % (Auto) Eos % (Auto) 9.8 H [place] # 0.9 H Eos # 1.3 H Baso # Seg Neutrophils % 71.0 H Seg Neutrophils # 9.3 H POC ABG pO2 61 L Creatinine 0.7 L Calcium 8.1 L ALT 6 L Albumin 3.4 L Fluid Total Protein 07/14/16 07/14/16 07/16/16 06:49 06:49 Unknown WBC 15.1 H Hct MCHC 35 H RDW 17.2 H Lymph % (Auto) [place] % (Auto) 8.1 H Eos % (Auto) 10.6 H [place] # 1.2 H Eos # 1.6 H Baso # 0.2 H Seg Neutrophils % Seg Neutrophils # 9.9 H POC ABG pO2 Creatinine 0.7 L Calcium 8.3 L ALT Albumin Fluid Total Protein 4.7 L 07/17/16 05:19 WBC 13.9 H Hct 34.1 L MCHC 36 H RDW 17.0 H Lymph % (Auto) 11.2 L [place] % (Auto) 11.2 H Eos % (Auto) [place] # 1.5 H Eos # Baso # 0.2 H Seg Neutrophils % 73.3 H Seg Neutrophils # 10.2 H POC ABG pO2 Creatinine Calcium ALT Albumin Fluid Total Protein CT scan - chest: image reviewed (no sentinel lesion)
[2016-07-19] MEDS ORDERED: FLEXERIL PO PRN (14:02)
--- NOTE | 2016-07-19 16:15 | Progress Note ---
Assessment and Plan Assessment and plan: --Complex Left-sided pleural effusion s/p CT-guided thoracentesis , f/u pleural fluid analysis Pleural fluid positive for malignant cells CT scan and findings noted Pulmonary following --Right-sided pneumonia Continue IV antibiotics, follow cultures, cough medicine as needed Oxygen titrate to O2 sats more than 90% Cough medicine, Flexeril for abdominal cramps while coughing --Acute exacerbation of COPD We will manage with nebulizers, IV antibiotics, inhalation steroids --History of coronary artery disease status post PCI Continue current cardiac medications, aspirin and Plavix beta blockers and statins --DVT prophylaxis with Lovenox Home oxygen evaluation at this time of discharge Consults and recommendations noted and appreciated History Interval history: Patient feels slightly better, continues to have mild productive cough Complains of some abdominal cramps while coughing excessively, requests for some muscle relaxers Denies chest pain mild shortness of breath Alert awake oriented 3 not in acute distress vital signs reviewed Hospitalist Physical - Constitutional Vitals: Temp Pulse Resp BP Pulse Ox 97.6 F 106 H 20 94/62 95 07/19/16 12:57 07/19/16 12:57 07/19/16 12:57 07/19/16 12:57 07/19/16 12:57 General appearance: Present: no acute distress, cachectic - EENT Eyes: Present: PERRL, EOM intact - Neck Neck: Present: supple, normal ROM - Respiratory Respiratory effort: normal Respiratory: bilateral: diminished, rhonchi, negative: rales - Cardiovascular Rhythm: regular Heart Sounds: Present: S1 & S2 - Extremities Extremities: no ischemia, pulses intact, pulses symmetrical Peripheral Pulses: within normal limits - Abdominal General gastrointestinal: soft, non-tender, non-distended, normal bowel sounds - Integumentary Integumentary: Present: clear, warm - Psychiatric Psychiatric: appropriate mood/affect, cooperative - Neurologic Neurologic: CNII-XII intact, moves all extremities Results - Labs CBC & Chem 7: 07/17/16 05:19 07/14/16 06:49 Labs: Laboratory Last Values WBC 13.9 K/mm3 (4.5-11.0) H 07/17/16 05:19 RBC 4.02 M/mm3 (3.65-5.03) 07/17/16 05:19 Hgb 12.2 gm/dl (11.8-15.2) 07/17/16 05:19 Hct 34.1 % (35.5-45.6) L 07/17/16 05:19 MCV 85 fl (84-94) 07/17/16 05:19 MCH 30 pg (28-32) 07/17/16 05:19 MCHC 36 % (32-34) H 07/17/16 05:19 RDW 17.0 % (13.2-15.2) H 07/17/16 05:19 Plt Count 361 K/mm3 (140-440) 07/17/16 05:19 Lymph % (Auto) 11.2 % (13.4-35.0) L 07/17/16 05:19 [place] % (Auto) 11.2 % (0.0-7.3) H 07/17/16 05:19 Eos % (Auto) 3.2 % (0.0-4.3) 07/17/16 05:19 Baso % (Auto) 1.1 % (0.0-1.8) 07/17/16 05:19 Lymph # 1.5 K/mm3 (1.2-5.4) 07/17/16 05:19 [place] # 1.5 K/mm3 (0.0-0.8) H 07/17/16 05:19 Eos # 0.4 K/mm3 (0.0-0.4) 07/17/16 05:19 Baso # 0.2 K/mm3 (0.0-0.1) H 07/17/16 05:19 Seg Neutrophils % 73.3 % (40.0-70.0) H 07/17/16 05:19 Seg Neutrophils # 10.2 K/mm3 (1.8-7.7) H 07/17/16 05:19 PT 14.2 Sec. (12.2-14.9) 07/14/16 06:49 INR 1.11 (0.87-1.13) 07/14/16 06:49 APTT 32.0 Sec. (24.2-36.6) 07/14/16 06:49 POC ABG pH 7.390 (7.35-7.45) 07/12/16 16:05 POC ABG pCO2 35.9 (35-45) 07/12/16 16:05 POC ABG pO2 61 (80-105) L 07/12/16 16:05 POC ABG HCO3 21.7 07/12/16 16:05 POC ABG Total CO2 23 07/12/16 16:05 POC ABG O2 Sat 91 07/12/16 16:05 POC ABG Base Excess -3 07/12/16 16:05 FiO2 3 % 07/12/16 16:05 Sodium 137 mmol/L (137-145) 07/14/16 06:49 Potassium 4.2 mmol/L (3.6-5.0) 07/14/16 06:49 Chloride 101.0 mmol/L (98-107) 07/14/16 06:49 Carbon Dioxide 25 mmol/L (22-30) 07/14/16 06:49 Anion Gap 15 mmol/L 07/14/16 06:49 BUN 9 mg/dL (9-20) 07/14/16 06:49 Creatinine 0.7 mg/dL (0.8-1.5) L 07/14/16 06:49 Estimated GFR > 60 ml/min 07/14/16 06:49 BUN/Creatinine Ratio 12.85 % 07/14/16 06:49 Glucose 96 mg/dL (75-100) 07/14/16 06:49 POC Glucose 88 (70-105) 07/15/16 05:18 Calcium 8.3 mg/dL (8.4-10.2) L 07/14/16 06:49 Total Bilirubin 1.2 mg/dL (0.1-1.2) 07/12/16 06:20 AST 11 units/L (5-40) 07/12/16 06:20 ALT 6 units/L (7-56) L 07/12/16 06:20 Alkaline Phosphatase 57 units/L (35-129) 07/12/16 06:20 Troponin T < 0.010 ng/mL (0.00-0.029) 07/11/16 12:57 Total Protein 6.5 g/dL (6.3-8.2) 07/12/16 06:20 Albumin 3.4 g/dL (3.9-5) L 07/12/16 06:20 Albumin/Globulin Ratio 1.1 % 07/12/16 06:20 Fluid Type Thoracentesis 07/16/16 Unknown Fluid Color [place] 07/16/16 Unknown Fluid Appearance Turbid 07/16/16 Unknown Fluid WBC 1650 /mm3 07/16/16 Unknown Fluid RBC 250 /mm3 07/16/16 Unknown Fluid Diff Comment 07/16/16 Unknown Fluid Seg Neutrophils 9.0 % 07/16/16 Unknown Fluid Lymphocytes 2.0 % 07/16/16 Unknown Fluid Reactive Lymphs 0 % 07/16/16 Unknown Fluid Monocytes 67.0 % 07/16/16 Unknown Fluid Eosinophils 22.0 % 07/16/16 Unknown Fluid Basophils 0 % 07/16/16 Unknown Fluid Glucose 55 mg/dL (40-70) 07/16/16 Unknown Fluid Total Protein 4.7 (15.0-45.0) L 07/16/16 Unknown Fluid LDH 279 07/16/16 Unknown Fluid Amylase 13 07/16/16 Unknown Fluid Comment See add'l 07/16/16 Unknown
[2016-07-19] MEDS: LOVENOX SUB-Q SCH (22:22)
[2016-07-19] MEDS: ZOCOR PO SCH (22:22)
[2016-07-20] MEDS: TYLENOL PO PRN ×2 (00:06→21:55)
[2016-07-20 05:56] LABS: Basophils % (Auto) 1.5 % (0.0-1.8); Hematocrit 30.9 % (35.5-45.6); Hemoglobin 11.3 gm/dl (11.8-15.2); Mean Corpuscular HGB Conc 36 % (32-34); Mean Corpuscular Hemoglobin 30 pg (28-32); Mean Corpuscular Volume 81 fl (84-94); Platelet Count 354 K/mm3 (140-440); Red Cell Distribution Width 16.9 % (13.2-15.2); White Blood Count 8.9 K/mm3 (4.5-11.0)
[2016-07-20 06:22] LABS: Anion Gap 20 mmol/L; Blood Urea Nitrogen 18 mg/dL (9-20); Calcium 7.9 mg/dL (8.4-10.2); Carbon Dioxide 24 mmol/L (22-30); Chloride 90.7 mmol/L (98-107); Glucose 96 mg/dL (75-100); Magnesium 2.3 mg/dL (1.7-2.3); Phosphorous 3.5 mg/dL (2.5-4.5); Potassium 4.3 mmol/L (3.6-5.0); Sodium 130 mmol/L (137-145)
[2016-07-20] MEDS: BROVANA NEBU IH SCH ×2 (08:22→19:17)
[2016-07-20] MEDS: ATROVENT IH SCH ×2 (08:22→19:17)
[2016-07-20] MEDS: PULMICORT IH SCH ×2 (08:22→19:17)
[2016-07-20] MEDS: PLAVIX PO SCH (10:30)
[2016-07-20] MEDS: LEVAQUIN PO SCH (10:30)
[2016-07-20] MEDS: ASPIRIN PO SCH (10:30)
[2016-07-20] MEDS ORDERED: TOPROL XL PO SCH (16:51)
--- NOTE | 2016-07-20 16:52 | Progress Note ---
Assessment and Plan Assessment and plan: --Complex Left-sided pleural effusion s/p CT-guided thoracentesis , Pleural fluid positive for malignant cells CT scan and findings noted, we will consult oncology --Right-sided pneumonia Continue IV antibiotics, follow cultures, cough medicine as needed Oxygen titrate to O2 sats more than 90% Cough medicine, Flexeril for abdominal cramps while coughing --Acute exacerbation of COPD We will manage with nebulizers, IV antibiotics, inhalation steroids --History of coronary artery disease status post PCI Continue current cardiac medications, aspirin and Plavix beta blockers and statins --DVT prophylaxis with Lovenox Home oxygen evaluation at this time of discharge Consults and recommendations noted and appreciated History Interval history: Seen and evaluated medical records reviewed No new events reported by the nursing staff Patient complains of generalized weakness and worsening shortness of breath and cough Alert awake oriented 3 not in acute distress, chronically looking Hospitalist Physical - Constitutional Vitals: Temp Pulse Resp BP Pulse Ox 97 F L 82 20 91/52 96 07/20/16 08:00 07/20/16 08:45 07/20/16 08:45 07/20/16 08:00 07/20/16 08:22 General appearance: Present: no acute distress, cachectic - EENT Eyes: Present: PERRL, EOM intact - Neck Neck: Present: supple, normal ROM - Respiratory Respiratory effort: normal Respiratory: bilateral: diminished, rhonchi - Cardiovascular Rhythm: regular Heart Sounds: Present: S1 & S2 - Extremities Extremities: no ischemia, pulses intact, pulses symmetrical Peripheral Pulses: within normal limits - Abdominal General gastrointestinal: soft, non-tender, normal bowel sounds - Integumentary Integumentary: Present: clear, warm - Psychiatric Psychiatric: appropriate mood/affect, cooperative - Neurologic Neurologic: CNII-XII intact, moves all extremities Results - Labs CBC & Chem 7: 07/20/16 04:50 07/20/16 04:50 Labs: Laboratory Last Values WBC 8.9 K/mm3 (4.5-11.0) 07/20/16 04:50 RBC 3.80 M/mm3 (3.65-5.03) 07/20/16 04:50 Hgb 11.3 gm/dl (11.8-15.2) L 07/20/16 04:50 Hct 30.9 % (35.5-45.6) L 07/20/16 04:50 MCV 81 fl (84-94) L D 07/20/16 04:50 MCH 30 pg (28-32) 07/20/16 04:50 MCHC 36 % (32-34) H 07/20/16 04:50 RDW 16.9 % (13.2-15.2) H 07/20/16 04:50 Plt Count 354 K/mm3 (140-440) 07/20/16 04:50 Lymph % (Auto) 13.2 % (13.4-35.0) L 07/20/16 04:50 [place] % (Auto) 15.8 % (0.0-7.3) H 07/20/16 04:50 Eos % (Auto) 1.0 % (0.0-4.3) 07/20/16 04:50 Baso % (Auto) 1.5 % (0.0-1.8) 07/20/16 04:50 Lymph # 1.2 K/mm3 (1.2-5.4) 07/20/16 04:50 [place] # 1.4 K/mm3 (0.0-0.8) H 07/20/16 04:50 Eos # 0.1 K/mm3 (0.0-0.4) 07/20/16 04:50 Baso # 0.1 K/mm3 (0.0-0.1) 07/20/16 04:50 Seg Neutrophils % 68.5 % (40.0-70.0) 07/20/16 04:50 Seg Neutrophils # 6.1 K/mm3 (1.8-7.7) 07/20/16 04:50 PT 14.2 Sec. (12.2-14.9) 07/14/16 06:49 INR 1.11 (0.87-1.13) 07/14/16 06:49 APTT 32.0 Sec. (24.2-36.6) 07/14/16 06:49 POC ABG pH 7.390 (7.35-7.45) 07/12/16 16:05 POC ABG pCO2 35.9 (35-45) 07/12/16 16:05 POC ABG pO2 61 (80-105) L 07/12/16 16:05 POC ABG HCO3 21.7 07/12/16 16:05 POC ABG Total CO2 23 07/12/16 16:05 POC ABG O2 Sat 91 07/12/16 16:05 POC ABG Base Excess -3 07/12/16 16:05 FiO2 3 % 07/12/16 16:05 Sodium 130 mmol/L (137-145) L 07/20/16 04:50 Potassium 4.3 mmol/L (3.6-5.0) 07/20/16 04:50 Chloride 90.7 mmol/L (98-107) L 07/20/16 04:50 Carbon Dioxide 24 mmol/L (22-30) 07/20/16 04:50 Anion Gap 20 mmol/L 07/20/16 04:50 BUN 18 mg/dL (9-20) 07/20/16 04:50 Creatinine 0.8 mg/dL (0.8-1.5) 07/20/16 04:50 Estimated GFR > 60 ml/min 07/20/16 04:50 BUN/Creatinine Ratio 22.50 % 07/20/16 04:50 Glucose 96 mg/dL (75-100) 07/20/16 04:50 POC Glucose 88 (70-105) 07/15/16 05:18 Calcium 7.9 mg/dL (8.4-10.2) L 07/20/16 04:50 Phosphorus 3.5 mg/dL (2.5-4.5) 07/20/16 04:50 Magnesium 2.3 mg/dL (1.7-2.3) 07/20/16 04:50 Total Bilirubin 1.2 mg/dL (0.1-1.2) 07/12/16 06:20 AST 11 units/L (5-40) 07/12/16 06:20 ALT 6 units/L (7-56) L 07/12/16 06:20 Alkaline Phosphatase 57 units/L (35-129) 07/12/16 06:20 Troponin T < 0.010 ng/mL (0.00-0.029) 07/11/16 12:57 Total Protein 6.5 g/dL (6.3-8.2) 07/12/16 06:20 Albumin 3.4 g/dL (3.9-5) L 07/12/16 06:20 Albumin/Globulin Ratio 1.1 % 07/12/16 06:20 Fluid Type Thoracentesis 07/16/16 Unknown Fluid Color [place] 07/16/16 Unknown Fluid Appearance Turbid 07/16/16 Unknown Fluid WBC 1650 /mm3 07/16/16 Unknown Fluid RBC 250 /mm3 07/16/16 Unknown Fluid Diff Comment 07/16/16 Unknown Fluid Seg Neutrophils 9.0 % 07/16/16 Unknown Fluid Lymphocytes 2.0 % 07/16/16 Unknown Fluid Reactive Lymphs 0 % 07/16/16 Unknown Fluid Monocytes 67.0 % 07/16/16 Unknown Fluid Eosinophils 22.0 % 07/16/16 Unknown Fluid Basophils 0 % 07/16/16 Unknown Fluid Glucose 55 mg/dL (40-70) 07/16/16 Unknown Fluid Total Protein 4.7 (15.0-45.0) L 07/16/16 Unknown Fluid LDH 279 07/16/16 Unknown Fluid Amylase 13 07/16/16 Unknown Fluid Comment See add'l 07/16/16 Unknown
[2016-07-20] MEDS: TOPROL XL PO SCH (20:31)
--- NOTE | 2016-07-20 20:39 | Progress Note ---
Assessment and Plan Patient alert, awake. Irritable.No acute respitatory distress.O2 satuaration 93 % on 3 litres O2. Sitting by the side of the bed. Pleural fluid protein 4.7, LDH 279. Pleural fluid is exudate. Pleural fluid cytology reported malignant cells present consistent with metastatic carcinima. Oncology consulted. - Patient Problems (1) COPD exacerbation Current Visit: Yes Status: Acute Plan to address problem: O2 supplementation 3 litres. Brovanna/Atrovent aerosol treatments.q 12 hours. Continue S/C Lovenox. Continue Levaquine. (2) Pleural effusion, left Current Visit: Yes Status: Acute Plan to address problem: Patient undergone left thoracentesis. Pleural fluid is exudate. Pleural fluid protein 4.7, LDH 479, Pleural fluid WBC 1650. Pleural fluid cytology reported Malignant cells present consistent with metastatic carcinoma. Oncology consulted. (3) Pneumonia Current Visit: Yes Status: Acute Qualifiers: Pneumonia type: due to unspecified organism Aspiration pneumonia type: A Laterality: bilateral Lung location: unspecified part of lung Qualified Code (s): J18.9 - Pneumonia, unspecified organism Plan to address problem: Patient is on Levaquine. (4) STEMI (ST elevation myocardial infarction) Current Visit: No Status: Acute Qualifiers: Involved coronary artery: unspecified coronary artery Qualified Code(s): I21.3 - ST elevation (STEMI) myocardial infarction of unspecified site Plan to address problem: Management as per primary care and cardiology. Subjective Date of service: 07/20/16 Principal diagnosis: Acute COPD exacerbation Interval history: Patient alert, awake. Irritable.No acute respitatory distress.O2 satuaration 93 % on 3 litres O2. Sitting by the side of the bed. Pleural fluid protein 4.7, LDH 279. Pleural fluid is exudate. Pleural fluid cytology reported malignant cells present consistent with metastatic carcinima. Oncology consulted. Objective Vital Signs - 12hr 07/20/16 07/20/16 07/20/16 08:45 12:00 14:40 Temperature 98 F Pulse Rate [ 82 Bilateral Throughout] Pulse Rate [ 116 H Left] Pulse Rate [ 100 H Right Radial] Respiratory 24 24 Rate Respiratory 20 Rate [Bilateral Throughout] Blood Pressure 95/60 [Right Arm] O2 Sat by Pulse Oximetry 07/20/16 07/20/16 07/20/16 16:00 19:18 19:20 Temperature 97.6 F Pulse Rate [ 125 H Bilateral Throughout] Pulse Rate [ 106 H Left] Pulse Rate [ Right Radial] Respiratory 20 Rate Respiratory 22 Rate [Bilateral Throughout] Blood Pressure 101/60 [Right Arm] O2 Sat by Pulse 92 Oximetry 07/20/16 07/20/16 19:26 19:29 Temperature Pulse Rate [ 125 H Bilateral Throughout] Pulse Rate [ Left] Pulse Rate [ Right Radial] Respiratory Rate Respiratory 21 Rate [Bilateral Throughout] Blood Pressure [Right Arm] O2 Sat by Pulse 88 Oximetry Constitutional: no acute distress, alert, appears uncomfortable Eyes: non-icteric ENT: oropharynx moist Neck: supple, no lymphadenopathy Effort: mildly labored Ascultation: Bilateral: diminished breath sounds (prolonged expiratory phase), rales (bases), other (diminished bilateral BS) Cardiovascular: regular rate and rhythm Gastrointestinal: normoactive bowel sounds, soft, non-tender, non-distended Integumentary: normal Extremities: no cyanosis, no edema, pink and warm, pulses normal, no ischemia or petechiae Neurologic: normal mental status, non-focal exam, pupils equal and round, motor strength normal and Psychiatric: mood appropriate, depressed CBC and BMP: 07/20/16 04:50 07/20/16 04:50 ABG, PT/INR, D-dimer: ABG POC ABG pH 7.390 (7.35-7.45) 07/12/16 16:05 POC ABG pCO2 35.9 (35-45) 07/12/16 16:05 POC ABG pO2 61 (80-105) L 07/12/16 16:05 POC ABG HCO3 21.7 07/12/16 16:05 POC ABG Total CO2 23 07/12/16 16:05 POC ABG O2 Sat 91 07/12/16 16:05 PT/INR, D-dimer PT 14.2 Sec. (12.2-14.9) 07/14/16 06:49 INR 1.11 (0.87-1.13) 07/14/16 06:49 Abnormal lab findings: Abnormal Labs 07/12/16 07/12/16 07/12/16 06:20 06:20 16:05 WBC 13.1 H Hgb Hct 34.4 L MCV MCHC 36 H RDW 17.1 H Lymph % (Auto) 11.8 L [place] % (Auto) Eos % (Auto) 9.8 H [place] # 0.9 H Eos # 1.3 H Baso # Seg Neutrophils % 71.0 H Seg Neutrophils # 9.3 H POC ABG pO2 61 L Sodium Chloride Creatinine 0.7 L Calcium 8.1 L ALT 6 L Albumin 3.4 L Fluid Total Protein 07/14/16 07/14/16 07/16/16 06:49 06:49 Unknown WBC 15.1 H Hgb Hct MCV MCHC 35 H RDW 17.2 H Lymph % (Auto) [place] % (Auto) 8.1 H Eos % (Auto) 10.6 H [place] # 1.2 H Eos # 1.6 H Baso # 0.2 H Seg Neutrophils % Seg Neutrophils # 9.9 H POC ABG pO2 Sodium Chloride Creatinine 0.7 L Calcium 8.3 L ALT Albumin Fluid Total Protein 4.7 L 07/17/16 07/20/16 07/20/16 05:19 04:50 04:50 WBC 13.9 H Hgb 11.3 L Hct 34.1 L 30.9 L MCV 81 L D MCHC 36 H 36 H RDW 17.0 H 16.9 H Lymph % (Auto) 11.2 L 13.2 L [place] % (Auto) 11.2 H 15.8 H Eos % (Auto) [place] # 1.5 H 1.4 H Eos # Baso # 0.2 H Seg Neutrophils % 73.3 H Seg Neutrophils # 10.2 H POC ABG pO2 Sodium 130 L Chloride 90.7 L Creatinine Calcium 7.9 L ALT Albumin Fluid Total Protein CT scan - chest: report reviewed (No pulmonary emboli. Evidence of pulmonary arterial hypertension.Extensive multiple bullae and scarring bilaterally.Nodularity also noted in the lung parenchyma.Areas of loculated pleural effusion.)
[2016-07-20] MEDS: ZOCOR PO SCH (21:55)
[2016-07-20] MEDS: LOVENOX SUB-Q SCH (21:55)
[2016-07-20] MEDS: MUCINEX ER PO PRN (22:38)
[2016-07-21] MEDS: PULMICORT IH SCH ×2 (08:05→20:18)
[2016-07-21] MEDS: BROVANA NEBU IH SCH ×2 (08:07→20:18)
[2016-07-21] MEDS: ATROVENT IH SCH ×2 (08:22→20:18)
--- NOTE | 2016-07-21 08:58 | Progress Note ---
Hospitalist Physical - Constitutional Vitals: Temp Pulse Resp BP Pulse Ox 98.4 F 109 H 20 103/62 95 07/21/16 08:33 07/21/16 08:33 07/21/16 08:33 07/21/16 08:33 07/21/16 08:33 General appearance: Present: no acute distress, cachectic Results - Labs CBC & Chem 7: 07/20/16 04:50 07/20/16 04:50 Labs: Laboratory Last Values WBC 8.9 K/mm3 (4.5-11.0) 07/20/16 04:50 RBC 3.80 M/mm3 (3.65-5.03) 07/20/16 04:50 Hgb 11.3 gm/dl (11.8-15.2) L 07/20/16 04:50 Hct 30.9 % (35.5-45.6) L 07/20/16 04:50 MCV 81 fl (84-94) L D 07/20/16 04:50 MCH 30 pg (28-32) 07/20/16 04:50 MCHC 36 % (32-34) H 07/20/16 04:50 RDW 16.9 % (13.2-15.2) H 07/20/16 04:50 Plt Count 354 K/mm3 (140-440) 07/20/16 04:50 Lymph % (Auto) 13.2 % (13.4-35.0) L 07/20/16 04:50 [place] % (Auto) 15.8 % (0.0-7.3) H 07/20/16 04:50 Eos % (Auto) 1.0 % (0.0-4.3) 07/20/16 04:50 Baso % (Auto) 1.5 % (0.0-1.8) 07/20/16 04:50 Lymph # 1.2 K/mm3 (1.2-5.4) 07/20/16 04:50 [place] # 1.4 K/mm3 (0.0-0.8) H 07/20/16 04:50 Eos # 0.1 K/mm3 (0.0-0.4) 07/20/16 04:50 Baso # 0.1 K/mm3 (0.0-0.1) 07/20/16 04:50 Seg Neutrophils % 68.5 % (40.0-70.0) 07/20/16 04:50 Seg Neutrophils # 6.1 K/mm3 (1.8-7.7) 07/20/16 04:50 PT 14.2 Sec. (12.2-14.9) 07/14/16 06:49 INR 1.11 (0.87-1.13) 07/14/16 06:49 APTT 32.0 Sec. (24.2-36.6) 07/14/16 06:49 POC ABG pH 7.390 (7.35-7.45) 07/12/16 16:05 POC ABG pCO2 35.9 (35-45) 07/12/16 16:05 POC ABG pO2 61 (80-105) L 07/12/16 16:05 POC ABG HCO3 21.7 07/12/16 16:05 POC ABG Total CO2 23 07/12/16 16:05 POC ABG O2 Sat 91 07/12/16 16:05 POC ABG Base Excess -3 07/12/16 16:05 FiO2 3 % 07/12/16 16:05 Sodium 130 mmol/L (137-145) L 07/20/16 04:50 Potassium 4.3 mmol/L (3.6-5.0) 07/20/16 04:50 Chloride 90.7 mmol/L (98-107) L 07/20/16 04:50 Carbon Dioxide 24 mmol/L (22-30) 07/20/16 04:50 Anion Gap 20 mmol/L 07/20/16 04:50 BUN 18 mg/dL (9-20) 07/20/16 04:50 Creatinine 0.8 mg/dL (0.8-1.5) 07/20/16 04:50 Estimated GFR > 60 ml/min 07/20/16 04:50 BUN/Creatinine Ratio 22.50 % 07/20/16 04:50 Glucose 96 mg/dL (75-100) 07/20/16 04:50 POC Glucose 88 (70-105) 07/15/16 05:18 Calcium 7.9 mg/dL (8.4-10.2) L 07/20/16 04:50 Phosphorus 3.5 mg/dL (2.5-4.5) 07/20/16 04:50 Magnesium 2.3 mg/dL (1.7-2.3) 07/20/16 04:50 Total Bilirubin 1.2 mg/dL (0.1-1.2) 07/12/16 06:20 AST 11 units/L (5-40) 07/12/16 06:20 ALT 6 units/L (7-56) L 07/12/16 06:20 Alkaline Phosphatase 57 units/L (35-129) 07/12/16 06:20 Troponin T < 0.010 ng/mL (0.00-0.029) 07/11/16 12:57 Total Protein 6.5 g/dL (6.3-8.2) 07/12/16 06:20 Albumin 3.4 g/dL (3.9-5) L 07/12/16 06:20 Albumin/Globulin Ratio 1.1 % 07/12/16 06:20 Fluid Type Thoracentesis 07/16/16 Unknown Fluid Color [place]ka 07/16/16 Unknown Fluid Appearance Turbid 07/16/16 Unknown Fluid WBC 1650 /mm3 07/16/16 Unknown Fluid RBC 250 /mm3 07/16/16 Unknown Fluid Diff Comment 07/16/16 Unknown Fluid Seg Neutrophils 9.0 % 07/16/16 Unknown Fluid Lymphocytes 2.0 % 07/16/16 Unknown Fluid Reactive Lymphs 0 % 07/16/16 Unknown Fluid Monocytes 67.0 % 07/16/16 Unknown Fluid Eosinophils 22.0 % 07/16/16 Unknown Fluid Basophils 0 % 07/16/16 Unknown Fluid Glucose 55 mg/dL (40-70) 07/16/16 Unknown Fluid Total Protein 4.7 (15.0-45.0) L 07/16/16 Unknown Fluid LDH 279 07/16/16 Unknown Fluid Amylase 13 07/16/16 Unknown Fluid Comment See add'l 07/16/16 Unknown
[2016-07-21] MEDS: PLAVIX PO SCH (10:05)
[2016-07-21] MEDS: ASPIRIN PO SCH (10:05)
[2016-07-21] MEDS: LEVAQUIN PO SCH (10:05)
[2016-07-21] MEDS: MUCINEX ER PO PRN (11:34)
[2016-07-21] MEDS ORDERED: ISOPTO TEARS 0.5% OU PRN (15:53)
--- NOTE | 2016-07-21 16:23 | Hem/Onc Consultation ---
History of Present Illness - Reason for Consult Consult date: 07/21/16 - History of Present Illness PAtient admitted with SOB and cough. Noted with pleural effusion and had it drained. Pathology shows malignant cells. Past History Past Medical History: acute PA, hypertension, hyperlipidemia Medications and Allergies Allergies Allergy/AdvReac Type Severity Reaction Status Date / Time No Known Allergies Allergy Verified 03/08/16 03:00 Home Medications Medication Instructions Recorded Confirmed Last Taken Type Aspirin [Aspirin TAB] 325 mg PO QDAY #30 tablet 03/10/16 07/17/16 Unknown Rx Clopidogrel [Plavix] 75 mg PO QDAY #30 tablet 03/10/16 07/17/16 Unknown Rx Metoprolol Xl [Metoprolol 25 mg PO QDAY #30 tablet 03/10/16 07/17/16 Unknown Rx SUCCINATE ER TAB] Simvastatin [Zocor TAB] 40 mg PO QHS #30 tablet 03/10/16 07/17/16 Unknown Rx Active Meds: Active Medications Acetaminophen (Tylenol) 650 mg PO Q6H PRN PRN Reason: Pain, Mild (1-3) Last Admin: 07/20/16 21:55 Dose: 650 mg Albuterol (Proventil) 2.5 mg IH Q4HRT PRN PRN Reason: Cough Last Admin: 07/11/16 22:19 Dose: 2.5 mg Arformoterol Tartrate (Brovana Nebu) 15 mcg IH Q12HRT [facility] Last Admin: 07/21/16 08:07 Dose: 15 mcg Artificial Tears (Isopto Tears 0.5%) 2 drops OU TID PRN PRN Reason: Dry Eye(s) Aspirin (Aspirin) 325 mg PO QDAY [facility] Last Admin: 07/21/16 10:05 Dose: 325 mg Budesonide (Pulmicort) 0.5 mg IH Q12HRT [facility] Last Admin: 07/21/16 08:05 Dose: 0.5 mg Clopidogrel Bisulfate (Plavix) 75 mg PO QDAY [facility] Last Admin: 07/21/16 10:05 Dose: 75 mg Cyclobenzaprine HCl (Flexeril) 10 mg PO Q8H PRN PRN Reason: Muscle Spasm Last Admin: 07/19/16 22:25 Dose: 10 mg Enoxaparin Sodium (Lovenox) 40 mg SUB-Q QDAY@2200 [facility] Last Admin: 07/20/16 21:55 Dose: 40 mg Guaifenesin (Mucinex Er) 600 mg PO Q12HR PRN PRN Reason: Cough Last Admin: 07/21/16 11:34 Dose: 600 mg Hydromorphone HCl (Dilaudid) 1 mg IV Q4H PRN PRN Reason: Pain , Severe (7-10) Last Admin: 07/18/16 23:42 Dose: 1 mg Ipratropium Mcdaniel (Atrovent) 0.5 mg IH BIDRT [facility] Last Admin: 07/21/16 08:22 Dose: Not Given Levofloxacin (Levaquin) 500 mg PO Q24HR [facility] Last Admin: 07/21/16 10:05 Dose: 500 mg Lorazepam (Ativan) 0.5 mg PO Q12H PRN PRN Reason: Agitation Last Admin: 07/15/16 22:49 Dose: 0.5 mg Metoprolol Succinate (Toprol Xl) 12.5 mg PO QDAY [facility] Last Admin: 07/21/16 10:05 Dose: 12.5 mg Simvastatin (Zocor) 40 mg PO QHS [facility] Last Admin: 07/20/16 21:55 Dose: 40 mg Review of Systems All systems: negative (some cough) Exam - Constitutional Vitals: Last Vital Signs Temp 98.4 F 07/21/16 08:33 Pulse 90 07/21/16 10:08 Resp 22 07/21/16 10:08 BP 103/62 07/21/16 08:33 Pulse Ox 95 07/21/16 08:33 Pain Intensity (0-10): denies any pain General appearance: mild distress Performance status: 0-fully active - EENT Eyes: PERRL ENT: hearing intact Lymph node exam: negative cervical - Neck Neck: supple - Respiratory Respiratory effort: Positive: normal Respiratory: bilateral: CTA - Cardiovascular Rhythm: regular Heart Sounds: Present: S1 & S2 - Gastrointestinal General gastrointestinal: Present: soft - Musculoskeletal Musculoskeletal: strength equal bilaterally - Neurologic Neurologic: CNII-XII intact - Psychiatric Psychiatric: appropriate mood/affect Results - Imaging and cardiology CT scan - chest: pending CT Scan - head: pending Assessment and Plan - Patient Problems (1) Pleural effusion, left Current Visit: Yes Status: Acute Plan to address problem: He wants to go home. He has appt to see us AM. Recommended compliance. He agrees. Will need outpatient PET MRI brain and tissue markers.
--- NOTE | 2016-07-21 18:04 | Discharge Summary ---
Providers - Providers Date of Admission: 07/11/16 18:06 Date of discharge: 07/21/16 Attending physician: KINGSLEY MORE 07/21/16 08:56 Consult to Physician [CONS] Routine Consulting Provider: AQUILES VAZQUEZ Reason For Exam: lung cancer/Pl fluid malignant cells Place consult to:: [employer]/DR. VAZQUEZ Notified:: OFFICE Phone number called:: [phone] Was contact made?: Yes If yes, spoke with:: CONNIE Time called:: 09:31 Comment:: EUGENIO NOTIFIED Primary care physician: [employer] Hospitalization Condition: Fair Disposition: DISCHARGED TO HOME OR SELFCARE Core Measure Documentation - Palliative Care Palliative Care/ Comfort Measures: Not Applicable - Core Measures Any of the following diagnoses?: none Exam - Constitutional Vitals: Temp Pulse Resp BP Pulse Ox 98.9 F 103 H 18 96/56 98 07/21/16 16:00 07/21/16 16:00 07/21/16 16:00 07/21/16 16:00 07/21/16 16:00 General appearance: Present: no acute distress, cachectic, other (Thin built) - EENT Eyes: Present: PERRL, EOM intact - Neck Neck: Present: supple, normal ROM - Respiratory Respiratory effort: normal Respiratory: bilateral: diminished, rhonchi - Cardiovascular Rhythm: regular Heart Sounds: Present: S1 & S2 - Extremities Extremities: no ischemia, pulses intact, pulses symmetrical Peripheral Pulses: within normal limits - Abdominal General gastrointestinal: Present: soft, non-tender, non-distended, normal bowel sounds - Integumentary Integumentary: Present: clear, warm - Musculoskeletal Musculoskeletal: strength equal bilaterally - Psychiatric Psychiatric: appropriate mood/affect, cooperative - Neurologic Neurologic: CNII-XII intact, moves all extremities Plan Activity: advance as tolerated Diet: other (cardiac diet) Follow up with: KARUNA DIETRICH MD [Primary Care Provider] - 3-5 Days JADYN SINGLETON MD [Staff Physician] - 7 Days SHELLY YOUNG MD [Staff Physician] - 7 Days Prescriptions: ALBUTEROL Inhaler [ProAir HFA Inhaler] 2 puff IH QID PRN #1 inhalation PRN Reason: Shortness Of Breath guaiFENesin ER [Mucinex ER] 600 mg PO Q12HR PRN #30 tablet PRN Reason: Cough oxyCODONE /ACETAMINOPHEN [Percocet 5/325] 1 tab PO Q12H PRN #14 tablet PRN Reason: Pain
--- NOTE | 2016-07-21 18:22 | Progress Note ---
Assessment and Plan Patient alert, awake. Patient going home.I was told patients room air O2 satuaration on walking is 92%.Patient can go home on advair spiriva and albuterol inhalor . Can follow with me in 2 weeks as out patient. Strongly recommend to follow with oncologist as outpatient. - Patient Problems (1) COPD exacerbation Current Visit: Yes Status: Acute Plan to address problem: .Patient is going home on Advair, spiriva and albuterol inhalor. Can go home from pulmonary point of view . Come to the office for pulmonary up in 2 weeks. Strongly recommend to follow with oncology. (2) Pleural effusion, left Current Visit: Yes Status: Acute Plan to address problem: Patient undergone left thoracentesis. Pleural fluid is exudate. Pleural fluid protein 4.7, LDH 479, Pleural fluid WBC 1650. Pleural fluid cytology reported Malignant cells present consistent with metastatic carcinoma. Oncology consulted. Management as per oncology. (3) Pneumonia Current Visit: Yes Status: Acute Qualifiers: Qualified Code(s): J18.9 - Pneumonia, unspecified organism Plan to address problem: Patient is on Levaquine. (4) STEMI (ST elevation myocardial infarction) Current Visit: No Status: Acute Qualifiers: Qualified Code(s): I21.3 - ST elevation (STEMI) myocardial infarction of unspecified site Plan to address problem: Management as per primary care and cardiology. Subjective Date of service: 07/21/16 Principal diagnosis: Acute COPD exacerbation Interval history: Patient alert, awake. Patient going home.I was told patients room air O2 satuaration on walking is 92%.Patient can go home on advair spiriva and albuterol inhalor . Can follow with me in 2 weeks as out patient. Strongly recommend to follow with oncologist as outpatient. Objective Vital Signs - 12hr 07/21/16 07/21/16 07/21/16 08:07 08:23 08:33 Temperature 98.4 F Pulse Rate [ 118 H 116 H Bilateral Throughout] Pulse Rate [ From Monitor] Pulse Rate [ Left Radial] Pulse Rate [ 109 H Radial] Respiratory 20 Rate Respiratory 20 18 Rate [Bilateral Throughout] Blood Pressure 103/62 [Right Arm] O2 Sat by Pulse 92 95 Oximetry 07/21/16 07/21/16 10:08 16:00 Temperature 98.9 F Pulse Rate [ Bilateral Throughout] Pulse Rate [ 103 H From Monitor] Pulse Rate [ 90 Left Radial] Pulse Rate [ Radial] Respiratory 22 18 Rate Respiratory Rate [Bilateral Throughout] Blood Pressure 96/56 [Right Arm] O2 Sat by Pulse 98 Oximetry Constitutional: no acute distress, alert, appears uncomfortable Eyes: non-icteric ENT: oropharynx moist Neck: supple, no lymphadenopathy Effort: mildly labored Ascultation: Bilateral: diminished breath sounds (prolonged expiratory phase), rales (bases), other (diminished bilateral BS) Cardiovascular: regular rate and rhythm Gastrointestinal: normoactive bowel sounds, soft, non-tender, non-distended Integumentary: normal Extremities: no cyanosis, no edema, pink and warm, pulses normal, no ischemia or petechiae Neurologic: normal mental status, non-focal exam, pupils equal and round, motor strength normal and Psychiatric: mood appropriate, depressed CBC and BMP: 07/20/16 04:50 07/20/16 04:50 ABG, PT/INR, D-dimer: ABG POC ABG pH 7.390 (7.35-7.45) 07/12/16 16:05 POC ABG pCO2 35.9 (35-45) 07/12/16 16:05 POC ABG pO2 61 (80-105) L 07/12/16 16:05 POC ABG HCO3 21.7 07/12/16 16:05 POC ABG Total CO2 23 07/12/16 16:05 POC ABG O2 Sat 91 07/12/16 16:05 PT/INR, D-dimer PT 14.2 Sec. (12.2-14.9) 07/14/16 06:49 INR 1.11 (0.87-1.13) 07/14/16 06:49 Abnormal lab findings: Abnormal Labs 07/12/16 07/12/16 07/12/16 06:20 06:20 16:05 WBC 13.1 H Hgb Hct 34.4 L MCV MCHC 36 H RDW 17.1 H Lymph % (Auto) 11.8 L [place] % (Auto) Eos % (Auto) 9.8 H [place] # 0.9 H Eos # 1.3 H Baso # Seg Neutrophils % 71.0 H Seg Neutrophils # 9.3 H POC ABG pO2 61 L Sodium Chloride Creatinine 0.7 L Calcium 8.1 L ALT 6 L Albumin 3.4 L Fluid Total Protein 07/14/16 07/14/16 07/16/16 06:49 06:49 Unknown WBC 15.1 H Hgb Hct MCV MCHC 35 H RDW 17.2 H Lymph % (Auto) [place] % (Auto) 8.1 H Eos % (Auto) 10.6 H [place] # 1.2 H Eos # 1.6 H Baso # 0.2 H Seg Neutrophils % Seg Neutrophils # 9.9 H POC ABG pO2 Sodium Chloride Creatinine 0.7 L Calcium 8.3 L ALT Albumin Fluid Total Protein 4.7 L 07/17/16 07/20/16 07/20/16 05:19 04:50 04:50 WBC 13.9 H Hgb 11.3 L Hct 34.1 L 30.9 L MCV 81 L D MCHC 36 H 36 H RDW 17.0 H 16.9 H Lymph % (Auto) 11.2 L 13.2 L [place] % (Auto) 11.2 H 15.8 H Eos % (Auto) [place] # 1.5 H 1.4 H Eos # Baso # 0.2 H Seg Neutrophils % 73.3 H Seg Neutrophils # 10.2 H POC ABG pO2 Sodium 130 L Chloride 90.7 L Creatinine Calcium 7.9 L ALT Albumin Fluid Total Protein
[2016-07-21 23:40] VITALS: BP 126/62
== END 2016-07-21 21:20 | disposition home or self-care (01) | DRG 280 ==
LOC: ED 12:30 → 3A 18:06
PROVIDERS: ADMIT Internal Medicine; ATTEND Internal Medicine
PROC: 0W9B3ZX Drainage of Left Pleural Cavity, Percutaneous Approach, Diagnostic (ICD-10-PCS; principal; 2016-07-11)
DX: I21.3 ST elevation (STEMI) myocardial infarction of unspecified site (principal); J18.9 Pneumonia, unspecified organism; J44.1 Chronic obstructive pulmonary disease with (acute) exacerbation; J90 Pleural effusion, not elsewhere classified; I25.10 Atherosclerotic heart disease of native coronary artery without angina pectoris; I25.2 Old myocardial infarction; K21.9 Gastro-esophageal reflux disease without esophagitis; I48.91 Unspecified atrial fibrillation; E78.5 Hyperlipidemia, unspecified; Z99.81 Dependence on supplemental oxygen; I10 Essential (primary) hypertension; F17.210 Nicotine dependence, cigarettes, uncomplicated
CPT/HCPCS: 32555; 36415; 36600; 71010; 71020; 71275; 76604; 80048; 80053; 82150; 82803; 82947; 82962; 83605; 83735; 84100; 84160; 84484; 85025; 85610; 85730; 87040; 87116; 88112; 88305; 88342; 89051; 93005; 93010; 94640; 94760; J1170; J1650; J1956; J7030; Q9967